=== PATIENT | male | born 1960 | race Asian ===

== ENCOUNTER 2020-03-07 11:01 | Outpatient (REF) | payer BC, SELFPAY | END 2020-03-07 11:02 | disposition home or self-care (01) | LOC: HO.LAB 11:01 | PROVIDERS: Visit Provider Nurse Practitioner Family | DX: Z20.828 Contact with and (suspected) exposure to other viral communicable diseases (principal) | CPT/HCPCS: U0003 ==

== ENCOUNTER 2020-09-25 15:39 | Emergency (ER) | payer BC, SELFPAY ==
--- NOTE | ~2020-09-25 | XR_ITS ---
EXAMINATION: LEFT WRIST CLINICAL INFORMATION: Pain COMPARISON: Frontal view of the hand #20 2012 TECHNIQUE: 4 views of the left wrist FINDINGS: There is an intra-articular impacted displaced distal radial fracture. The ulnar 20% of the articular surface of the radius is depressed by approximately 3 mm. There is a sagittal component to the intra-articular fracture. In addition there is a transversely oriented fracture which extends from the radial aspect of the proximal metaphysis across the distal radius and there is an additional sagittal fracture extending into the diametaphysis. Tiny smooth ossific density associated with the ulnar styloid is age indeterminate. There is soft tissue swelling. No definite navicular fracture. XR/XR wrist LT w scaphoid IMPRESSION: Depressed intra-articular distal radial fracture. Multiplanar components as described. Equivocal ossification near the tip of the ulnar styloid is age indeterminate.
[2020-09-25 16:25] VITALS: BP 143/85; PULSE 71; RESP 16; TEMP 36.6; O2SAT 99; BMI 29.9
--- NOTE | 2020-09-25 18:54 | ED.EXTPRO ---
HPI - Extremity Problem General Chief complaint: Extremity Injury, Upper Stated complaint: abnormal xray Time Seen by Provider: 09/25/20 18:00 Source: patient Mode of arrival: ambulatory Limitations: no limitations History of Present Illness HPI Narrative: Patient presents to ED for left wrist injury. Patient states he fell on Thursday on the wrist and was sent by PCP for x-ray today which showed a fracture. Patient states presently in the ER he has no pain. Patient denies falling to the ground, hitting head, neck pain, or loss of consciousness. Related Data Previous Rx's Medication Instructions Recorded naproxen 500 mg PO BID PRN #20 tab 09/25/20 Allergies Allergy/AdvReac Type Severity Reaction Status Date / Time No Known Allergies Allergy Verified 09/25/20 14:18 Review of Systems Review of Systems: Yes all other systems are reviewed and are negative Constitutional: Constitutional: Reports as per HPI and Reports no additional constitutional complaints Eyes: Eyes: Reports as per HPI ENT: Reports system reviewed and no additional complaints, except as documented and Reports as per HPI Cardiovascular: Cardiovascular: Reports as per HPI and Reports no additional cardiovascular complaints Respiratory: Respiratory: Reports as per HPI and Reports no additional respiratory complaints Gastrointestinal: Gastrointestinal: Reports as per HPI and Reports no additional gastrointestinal complaints Genitourinary: Genitourinary: Reports no additional male genitourinary complaints and Reports as per HPI Musculoskeletal: Musculoskeletal: Reports no additional musculoskeletal complaints, Reports as per HPI and Reports arthralgias Comments: Left wrist pain Neurologic: Reports system reviewed and no additional complaints, except as documented and Reports as per HPI Psychiatric: Psychiatric: Reports no additional psychiatric complaints and Reports as per HPI [facility] Family History Family History (Updated 09/25/20 @ 14:21 by PEDRO Coronel) Mother No problems noted. Father No problems noted. Social History Social History (Updated 09/25/20 @ 14:22 by PEDRO Coronel) Alcohol intake: current Alcohol intake frequency: 0-2 drinks per day Smoking Status: Never smoker Physical Exam Vital Signs: Vital Signs: Last Vital Signs Temp 97.8 F 09/25/20 16:25 Pulse 71 09/25/20 16:25 Resp 16 09/25/20 16:25 BP 143/85 H 09/25/20 16:25 Pulse Ox 99 09/25/20 16:25 Body Mass Index 29.9 Const: General: cooperative, healthy appearing, comfortable, no acute distress, well developed, alert and awake Orientation/consciousness: patient oriented x3 HENMT: Head: Yes normal to inspection, Yes No palpable skull fracture present, Yes normocephalic, Yes atraumatic and No abrasion Eyes: General: appearance normal, both eyes and all related structures Neck: Neck: Yes normal visual inspection, Yes full ROM, Yes no lymphadenopathy, Yes no meningeal signs, Yes trachea midline, Yes supple and No tender Chest: Chest palpation & inspection: normal inspection of the chest and normal palpation of entire chest wall Resp: Effort & Inspection: normal respiratory effort and able to speak in complete sentences Auscultation: clear to auscultation bilaterally Cardio: Jugular venous distension: no JVD Heart sounds: S1 normal heart sound present and S2 normal heart sound present GI: Inspection: Yes normal to inspection and No abdominal wall ecchymosis Palpation (GI): Soft to palpation, not firm, nontender, no guarding and not rigid : General: No CVA tenderness and Yes no CVA tenderness Back/Spine/Pelvis: Back: no CVA tenderness, No CVA tenderness and No back tenderness Skin: General skin exam: no rashes or lesions noted and elasticity normal Neuro: General: patient oriented x3, no meningeal signs and CN's II-XI intact bilaterally Cranial nerves: Yes CN's II-XII intact bilaterally Extrem: Other: Left upper extremity: Slight deformity at radius of left wrist. Vascular/neuro exam is intact. Motor exam limited due to slight pain. Slight swelling at radial aspect of wrist. Psych: Appearance: grossly normal, well kempt and not disheveled Course Course Course Narrative: Patient will have x-ray Reevaluation(s) Reevaluation #1: X-ray shows wrist fracture. X-ray shows impacted intra-articular radial fracture. Spoke with orthopedic MORENO Girard who states since fracture occurred 5 days ago no need for reduction & just splint and follow-up with ortho clinic MDM - Extremity (Nontraumatic) MDM Narrative Medical decision making narrative: Wrist fracture Discharge Plan Discharge Clinical Impression: Fracture of wrist Patient Disposition: Home, Self-Care Instructions: Wrist Fracture in Adults (ED) Additional Instructions: Return to the ED for worsening pain, swelling, bluish blast coloration of hand/finger tips, redness, chest pain, shortness of breath, or any other concerning symptoms. Prescriptions: New naproxen 500 mg tablet 500 mg PO BID PRN (Reason: pain) Qty: 20 RF: 0 Referrals: Jeffery Carty MD [Physician] - 2 days (Left impacted radial wrist fracture) Stand Alone Forms: Work/School Release Interventions: ED Discharge Assessment Last Done: 09/25/20 19:28 Discharge Date/Time: 09/25/20 19:30 Print Language: Bulgarian
--- NOTE | 2020-09-25 19:21 | PC.NURSE ---
SUGAR TONG SPLINT APPLIED TO L HAND.
== END 2020-09-25 19:30 | disposition home or self-care (01) ==
LOC: HO.ED 15:39
PROVIDERS: Emergency Provider Internal Medicine; PCP Internal Medicine; Visit Provider Internal Medicine
DX: S52.572A Other intraarticular fracture of lower end of left radius, initial encounter for closed fracture (principal); W11.XXXA Fall on and from ladder, initial encounter; Y93.9 Activity, unspecified; Y92.017 Garden or yard in single-family (private) house as the place of occurrence of the external cause; Y99.9 Unspecified external cause status
CPT/HCPCS: 29125; 73110; 99283

== ENCOUNTER → 2020-09-28 08:49 | Outpatient (BNVA) | payer BC, SELFPAY | PROVIDERS: PCP Internal Medicine; Visit Provider Physician Assistant ==

== ENCOUNTER 2020-10-04 08:45 | Day surgery (SDC) | payer BC, SELFPAY ==
--- NOTE | 2020-10-03 09:54 | P.CONAN_ITS ---
Documented by User: Kymberly Davey 10/03/20 09:55 HPI - Anesthesia Eval Consult details Narrative: 60yo M for Left Radius Distal ORIF [facility] Active Problems Active Problems: All Active Problems (Updated 09/28/20 @ 09:40 by Rogerio Le PA-C) Distal radius fracture, left (Acute) Left wrist pain (Acute) Nonproductive cough (Acute) Past Medical History Medical History No significant past medical history Normal colonoscopy Family History Family History Mother No problems noted. Father No problems noted. 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 occupation: [employer]/rt handed Meds Allergies Allergy/AdvReac Type Severity Reaction Status Date / Time No Known Allergies Allergy Verified 09/28/20 09:07 Exam Exam Date and Time: October 03, 2020 0954 Assessment and Plan Assessment Anesthesia Assessment: Chart Reviewed Documented by User: Mary Weeks 10/04/20 11:09 PMFSH Past Medical History Medical History No significant past medical history Normal colonoscopy Family History Family History Mother No problems noted. Father No problems noted. 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 occupation: [employer]/Food [employer] Meds Allergies Allergy/AdvReac Type Severity Reaction Status Date / Time No Known Allergies Allergy Verified 09/28/20 09:07 Exam Airway Mallampati Class: II TM Dist: >3cm Neck ROM: Full Assessment and Plan Assessment Anesthesia Assessment: Anesthesia Plan Discussed and Chart Reviewed Final Anesthetic Review NPO: Yes ASA Class: I Final Preanesthetic Review: No Changes in Pt Med Stat, Meds/Allgs Chart Re viewed, Consent Obtained/Reviewed and Anes Risks/Benef Reviewed Patient Risk: Low Procedure Risk: Low Assessment/Block/Sedation in SS: Assess/Block/Sedation-SS Anesthetic Plan Anesthetic Plan: GA and Regional Block Disposition: Standard PACU
[2020-10-04] VITALS (8 sets, daily range): BP systolic 98–132; BP diastolic 56–82; PULSE 58–74; RESP 16; TEMP 36.1–36.6; O2SAT 94–100; BMI 26.0
--- NOTE | ~2020-10-04 | FL_ITS ---
EXAMINATION: XR FLUOROSCOPY WITH IMAGES CLINICAL INFORMATION: Left distal radius fracture. COMPARISON: Previous x-ray 09/25/2020 TECHNIQUE: Fluoroscopy performed by Dr. Shearer. Fluoroscopy time: 38 seconds DAP: [id number] [id number] Images: 4 FINDINGS: Fluoroscopy guidance was provided for plate and screw fixation of the left distal radius fracture. There is improved anatomic alignment. FL/FL guidance in OR IMPRESSION: ORIF of left distal radius fracture.
--- NOTE | 2020-10-04 09:41 | PC.NURSE ---
MD VENTURA AWARE OF WOUND NOTED TO LEFT WRIST.
[2020-10-04] MEDS: Lactated Ringers 1,000 ML 100 ML IVCONT (13:01)
--- NOTE | 2020-10-04 13:14 | P.OP_ITS ---
Operative Note Operative Note Date of Service: 10/04/20 Narrative: Operative Note Narrative: Preop diagnosis: 1. Left intra-articular Distal radius fracture Postop diagnosis: Same Procedure: 1. Left Distal radius fracture open reduction internal fixation Surgeon: Falguni Shearer MD Anesthesia: Mac plus regional block Findings: Taking her distal radius fracture Implants: A 3 hole Accu Med volar locking plate, with three 2.3 mm locking pegs/screws, and 3 3.5 mm cortical screws Tourniquet time: 45 minutes EBL: 5.0 ml Specimen: None Drains: None Complications: None Disposition: Brought to the recovery room in stable condition Plan: Follow-up in 10-14 days for wound check, suture removal and postop radiographs The patient will be placed in a volar wrist splint. Encouraged no lifting of anything heavier than a cell phone. Please encourage active and passive range of motion of the digits. Follow-up at 4-5 weeks postop for repeat radiographs. Indications: The patient is a 60 year old man with a comminuted intra- articular left distal radius fracture . The risks and benefits of operative treatment, including but not limited to risk of damage to blood vessels, nerves, tendons, infection, recurrence, persistent pain or numbness, incomplete resolution of preoperative symptoms, or need for further surgery were discussed with the patient and they wished to proceed with surgery. Procedure: Once consent was obtained patient was brought back to the operating suite and placed in the operating table in a supine position. A regional block was performed by the anesthesia team. Perioperative antibiotics and anesthesia was administered by the anesthesia team. A tourniquet was applied to the proximal aspect of the left upper extremity and the limb was prepped and draped in a standard surgical fashion. The limb was elevated exsanguinated with Esmarch bandage and the tourniquet inflated to 250 mm of mercury for a total tourniquet time of 45 minutes. The FluoroScan was used throughout the case to assess our reduction, and facil itate implant placement. A gentle closed reduction was 1st performed on the patient's left distal radius fracture. Was assessed radiographically before proceeding with the reduction internal fixation. I then made an 8 cm longitudinal incision over the distal aspect of the flexor carpi radialis tendon. The incision was made through the skin to the subcutaneous tissue using a 15. Blade. Then carefully dissected down to flexor carpi radialis tendon she tenotomy scissors. The FCR tendon sheath was then incised longitudinally using tenotomy scissors under direct visualization. The FCR tendon was then retracted ulnarly. I then made a longitudinal incision in the volar forearm fascia through the floor of FCR tendon sheath using tenotomy scissors under direct visualization. I identified the interval between the radial artery and the flexor tendons. This interval was developed further with my index finger, releasing some of the muscular fibers of the flexor pollicis longus. A dull we turnerander retractor was then placed. I then created an ulnarly based flap of the pronator quadratus by releasing the radial and distal edges using a 15. Blade. A Dean elevator was used to elevate the pronator quadratus from the volar surface of the distal radius. This then revealed to us our distal radius fracture. There was an oblique fracture line passing through the metaphysis to the articular surface at the junction between the lunate and scaphoid facets. An oblique view showed us the fracture fragment involving the DRUJ and the lunate facet extending dorsally. An open reduction was then performed on our distal radius fracture. I then placed a short narrow 3 hole Accu Med volar locking plate on the ulnar aspect of the volar surface of the distal radius so as to secure the lunate facet fragment.. I placed a single K-wire through the distal aspect of the plate and into the distal radius. This was assessed using fluoroscopic images. I was satisfied with the placement of our plate. I then placed three 2.3 mm locking screws/pegs in the distal aspect of the plate and distal radius by 1st drilling bicortically with a 2.0 mm drill bit, measuring with a depth gauge, and placing the appropriate length locking screws/pegs. The placement of our plate and screws was then assessed again using fluoroscopic images. The once satisfied with the placement of the volar locking plate and screws on the distal aspect of the distal radius, the plate was then reduced to the shaft of the radius. I then placed 3 3.5 mm cortical screws to the proximal aspect of the plate and into the shaft of the radius. This was done by 1st drilling bicortically with a 2.5 mm drill bit, measuring with a depth gauge, and placing the appropriate length screw. Final radiographs were then obtained. The DRUJ was assessed and found to be stable on exam. I was satisfied with our reduction and placement of all implants. At this point the wound was irrigated with normal saline. The pronator quadratus was reduced back over the volar locking plate using some 3-0 Vicryl suture material. The tourniquet was then deflated and hemostasis was obtained with a brief period of local pressure and bipolar monopolar electrocautery. The subcutaneous layer was then reapproximated using some 4-0 Vicryl suture, and the skin edges were reapproximated using some 5 0 Prolene suture. The wound was then infiltrated with some 1% lidocaine with epinephrine postop pain control. A sterile dressing and a short dorsal splint allowing for active flexion and extension of the digits was applied. The patient appears to have tolerated the procedure well and with no complications. All digits were well vascularized conclusion of the case.
--- NOTE | 2020-10-04 13:14 | MHC.SHP ---
Pre-Procedural Eval Section B Chief Complaint: Lower end radius Fracture Allergies: Allergies Allergy/AdvReac Type Severity Reaction Status Date / Time No Known Allergies Allergy Verified 09/28/20 09:07 Plan I have reviewed the history and physical and performed a pertinent physical examination on my patient. No changes have occurred unless specified.
== END 2020-10-04 16:07 ==
LOC: HO.SSS 08:46
PROVIDERS: PCP Internal Medicine; Visit Provider Orthopaedic Surgery
PROC: (CPT 25608; principal; 2020-10-04 10:30)
DX: S52.572A Other intraarticular fracture of lower end of left radius, initial encounter for closed fracture (principal); X58.XXXA Exposure to other specified factors, initial encounter; Y93.9 Activity, unspecified; Y92.9 Unspecified place or not applicable; Y99.8 Other external cause status
CPT/HCPCS: 25608; C1713; C1769; J0690; J1100; J2250; J2405; J3010

== ENCOUNTER 2020-10-17 08:22 | Outpatient (REF) | payer BC, SELFPAY ==
--- NOTE | ~2020-10-17 | XR_ITS ---
EXAMINATION: XR WRIST, LEFT CLINICAL INFORMATION: Pain COMPARISON: Left wrist 09/25/2020 TECHNIQUE: PA, lateral, and oblique views of the left wrist. FINDINGS: The intra-articular distal radial fracture has been stabilized with volar plate and screws. The fracture fragments are in alignment. The radioulnar carpal alignment is maintained normal. The soft tissues are normal. There is a dorsal wrist hard cast in place. XR/XR wrist LT min 3V IMPRESSION: Stabilized intraarticular distal radial fracture with volar plate and screws. There is a dorsal hard cast in place
== END 2020-10-17 08:23 | disposition home or self-care (01) ==
LOC: HO.HOSX 08:22
PROVIDERS: Visit Provider Orthopaedic Surgery
DX: S52.502A Unspecified fracture of the lower end of left radius, initial encounter for closed fracture (principal); M25.532 Pain in left wrist
CPT/HCPCS: 73110

== ENCOUNTER 2020-11-14 08:20 | Outpatient (REF) | payer BC, SELFPAY ==
--- NOTE | ~2020-11-14 | XR_ITS ---
EXAMINATION: XR WRIST, LEFT CLINICAL INFORMATION: Left wrist pain. COMPARISON: Most recent left wrist radiographs dated 10/17/2020. TECHNIQUE: PA, lateral, and oblique views of the left wrist. FINDINGS: Redemonstration of a distal radial ORIF across a minimally displaced distal radial fracture in unchanged anatomic alignment. Redemonstration of an ulnar styloid fracture in unchanged alignment. No hardware fracture. No perihardware lucency to suggest loosening or infection. No osseous erosion. XR/XR wrist LT min 3V IMPRESSION: Distal radial ORIF without evidence of complication. Distal radial and ulnar styloid fractures in unchanged anatomic alignment.
== END 2020-11-14 08:21 | disposition home or self-care (01) ==
LOC: HO.HOSX 08:20
PROVIDERS: Visit Provider Orthopaedic Surgery
DX: S52.502D Unspecified fracture of the lower end of left radius, subsequent encounter for closed fracture with routine healing (principal)
CPT/HCPCS: 73110

== ENCOUNTER 2021-01-08 07:30 | Outpatient (RCR) | payer BC, SELFPAY ==
--- NOTE | 2020-12-11 08:27 | MHC.OT.OEV ---
[address] [phone] F: [phone] Occupational Therapy Evaluation Diagnosis: Post-Op repair left intraarticular comminuted radius fx Date of Onset: 09/20/20 Date of Surgery: 10/04/20 Attending Provider: Dr Shearer Prescribed Treatment: Eval and Treat MD Follow Up Appointment: History of Current Condition: 60 yo male was working on a roof and fell off an 8' ladder, landing on his left wrist. He went to the ED five days later with persistent pain. x-ray showed comminuted intraarticular left radius fracture. He was referred to ortho and scheduled for ORIF 10/04/20. He is now about 10 weeks post-op repair, back to work and wearing prefab orthosis for work and sleep. 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 Enjoys playing [employer] Living Situation, Family and/or Social Support: Lives alone, 3 year old daughter visits Current Level of Function and Occupation Self Care, Employment, Leisure: Back to work the past three weeks, not lifting heavy items Sleep: Pain w/ sleeping, wearing orthosis Driving: Some pain w/ moving steering wheel Pain Assessment Pain Score: 3 Pain Scale Used: Numeric (0 - 10) Pain Location and Description: Pain free at rest 3/10 ache/sharp pain in left wrist Aggravating Factors: moving wrist, lifting objects, steering wheel Alleviating Factors: None used Skin and Soft Tissue Assessment Skin and Soft Tissue: Comments: Well healing surgical scar at distal radius Sensory Assessment Comments: Denies sensory changes Edema Assessment Upper Extremity: Left Impaired Lower Extremity: Comments: Mild visable edema left hand and wrist Dexterity Assessment Dexterity: WFL Comments: AROM(PROM) Strength Cervical Cervical Flexion: Cervical Extension: Cervical Lateral Flexion: Cervical Rotation: Comments: WFL Shoulder Flexion: Extension: Abduction: Internal Rotation: External Rotation: Comments: WFL Flexion: Extension: Abduction: Internal Rotation: External Rotation: Comments: Elbow Flexion: Extension: Pronation: Supination: Comments: WFL Flexion: Extension: Pronation: Supination: Comments: Wrist Flexion: R 58 L 44 Extension: R 60 L 46 Ulnar Deviation: R 50 L 35 Radial Deviation: R 20 L 10 Comments: Flexion: Extension: Ulnar Deviation: Radial Deviation: Comments: B/L WFL Thumb Thumb CMC Flexion: Thumb MCP Flexion: Thumb IP Flexion: Radial Abduction: Palmar Abduction: [place] ([place] 0-10): B/L 10 Comments: Digits Index MCP: PIP: DIP: Long MCP: PIP: DIP: Ring MCP: PIP: DIP: Small MCP: PIP: DIP: Comments: B/L WFL, mild left intrinsic tightness Gross Grasp: R 65lb L 38lb Lateral Pinch: R 11 L 10 Two-Point Pinch: R 6 L 6 Three-Jaw John: R 11 L 10 Comments: Patient Education Primary Language: Spanish 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 Patient demonstrates Patient verbalizes Barriers to Learning: None Readiness for Learning: Accepting Who was educated? Patient Comments: Plan of Care Assessment: 60 yo right hand dominant male presents almost 10 weeks post-op ORIF of left distal radius after fall off a ladder. He has been back to work for three weeks and primarily uses dominant right hand for heavy use, wearing prefab orthosis to left wrist. On assessment, he is pain free, notes pain only with some movements and lifting, but able to complete most daily activities, still avoiding heavy lifting. He has decreased range and strength w/ mild edema noted, surgical incision is well healed. He will benefit from cont'd therapy services for optimal functional gains. 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: Wrist ext 60 degrees Wrist flex 60 degrees Wrist pro 75 degrees Wrist sup 75 degrees Gross grasp 55lb Quickdash score <30pts Wean from orthosis w/ work tasks <2/10 pain w/ moderate lifting tasks Frequency and Duration: The patient will be seen 2x/wk for 4 weeks Treatment Plan: Therapeutic Exercise Therapeutic Activity Home Exercise Program Patient Education Edema Control ADL Training Ultrasound Paraffin Fluidotherapy MHP Cold Packs Joint Mobilization Soft Tissue Mobilization Kinesiotaping Electronically Signed By: Nikki Lea OTR/L Reviewed/agree with student documentation: N/A Therapist: Please sign and return to therapist, Thank you for your referral.
--- NOTE | 2021-01-08 07:57 | MHC.OT.DC ---
[address] [phone] F: [phone] Occupational Therapy Discharge Note Provider: Dr Shearer Diagnosis: Post-Op repair left intraarticular comminuted radius fx Date of Surgery: 10/04/20 Date of Evaluation: 12/11/20 Date of Discharge: 01/08/21 Treatments to Date: 4 Cancellations to Date: 1 Discharge Status: Achieved Goals Improved Function Independent with HEP Discharge Summary: Ron is now 13 weeks post-op, doing very well and most goal met at this time, still limited flexion, but shows improvements w/ heat and stretch. Pt feels Ind w/ his home program and has no functional limitation at this time. Electronically Signed By: Nikki Lae OTR/L Please Sign and return to therapist, thank you for your referral.
== END 2021-01-08 07:57 | disposition home or self-care (01) ==
LOC: HO.OT 07:30
PROVIDERS: Visit Provider Orthopaedic Surgery
DX: S52.502D Unspecified fracture of the lower end of left radius, subsequent encounter for closed fracture with routine healing (principal)
CPT/HCPCS: 97110; 97140; 97165

== ENCOUNTER 2021-05-14 10:37 | Outpatient (REF) | payer BC, SELFPAY ==
--- NOTE | ~2021-05-14 | XR_ITS ---
EXAMINATION: XR WRIST, LEFT CLINICAL INFORMATION: Pain in the left wrist COMPARISON: Left wrist radiograph on 11/14/2020 TECHNIQUE: PA, lateral, and oblique views of the left wrist. FINDINGS: Prior fixation of the distal radius. Orthopedic hardware is intact. No periprosthetic loosening or fracture. No change in the ulnar styloid fracture. No new fractures. XR/XR wrist LT min 3V IMPRESSION: Expected appearance of the distal radial fixation.
== END 2021-05-14 10:38 | disposition home or self-care (01) ==
LOC: HO.HOSX 10:37
PROVIDERS: PCP Internal Medicine; Visit Provider Orthopaedic Surgery
DX: S52.502D Unspecified fracture of the lower end of left radius, subsequent encounter for closed fracture with routine healing (principal)
CPT/HCPCS: 73110

== ENCOUNTER 2021-11-27 09:41 | Outpatient (REF) | payer BC, SELFPAY ==
[2021-11-27 09:56] LABS: MANUAL DIFF FLAG NO
[2021-11-27 10:40] LABS: Basophils Absolute Auto 0.1 X10*3/uL (0.0-0.2); Basophils Percent Auto 0.8 % (0-2); Eosinophils Absolute Auto 0.3 X10*3/uL (0.0-0.4); Eosinophils Percent Auto 4.2 % (0-4); Hematocrit 46.7 % (42.0-52.0); Hemoglobin 15.8 g/dl (14.0-18.0); Imm Gran Abs Auto 0.03 X10*3/uL (0.00-0.03); Imm Gran Pct Auto 0.4 % (0.0-0.4); Lymphocytes Absolute Auto 2.2 X10*3/uL (1.2-4.9); Lymphocytes Percent Auto 29.2 % (20-40); Mean Corpuscular HGB Conc 33.8 g/dl (31.0-36.0); Mean Corpuscular Hemoglobin 29.1 pg (27.0-33.0); Mean Platelet Volume 9.9 fL (9.4-12.4); Monocytes Absolute Auto 0.6 X10*3/uL (0.1-1.2); Monocytes Percent Auto 8.1 % (2-11); Neutrophils Absolute Auto 4.3 x10*3/uL (2.0-8.3); Neutrophils Percent Auto 57.3 % (45-73); Platelet Count 226 X10*3/uL (160-400); Red Blood Count 5.43 X10*6/uL (4.60-5.80); Red Cell Distribution Width 12.9 % (11.0-16.0); White Blood Count 7.6 X10*3/uL (4.8-10.8)
[2021-11-27 11:09] LABS: Alanine Aminotransferase 24 U/L (0-40); Albumin Level 4.1 g/dL (3.5-5.0); Alkaline Phosphatase 74 U/L (39-117); Anion Gap 8 (12-20); Aspartate Amino Transferase 22 U/L (5-37); Bilirubin Total 0.9 mg/dL (0.0-1.0); Blood Urea Nitrogen 15 mg/dL (9-16); Calcium 8.7 mg/dL (8.4-10.2); Carbon Dioxide 25 mmol/L (22-29); Chloride 108 mmol/L (96-108); Cholesterol 181 mg/dL; Estimated Glomerular Filt Rate > 60; Glucose Fasting 94 mg/dL (60-99); HDL Cholesterol 29 mg/dL; LDL Cholesterol Calculated 124 mg/dl; Sodium 137 mmol/L (135-145); Total Protein 6.9 g/dL (6.5-8.0); Triglycerides 141 mg/dL
[2021-11-27 11:30] LABS: Prostate Specific Antigen Scr 2.86 ng/mL (<0.05-4.0)
== END 2021-11-27 09:42 | disposition home or self-care (01) ==
LOC: HO.LAB 09:41
PROVIDERS: PCP Internal Medicine; Visit Provider Internal Medicine
DX: Z00.00 Encounter for general adult medical examination without abnormal findings (principal); E78.5 Hyperlipidemia, unspecified; I10 Essential (primary) hypertension; Z13.0 Encounter for screening for diseases of the blood and blood-forming organs and certain disorders involving the immune mechanism; Z12.5 Encounter for screening for malignant neoplasm of prostate
CPT/HCPCS: 36415; 80053; 80061; 84153; 85025

== ENCOUNTER 2021-12-14 10:38 | Outpatient (REF) | payer BC, SELFPAY ==
[2021-12-14 10:55] LABS: Binax Internal Control QC Valid; Binax Now Covid-19 Ag Positive (Negative)
== END 2021-12-14 10:39 | disposition home or self-care (01) ==
LOC: HO.HMGCLDS 10:38
PROVIDERS: Visit Provider Physician Assistant Medical
DX: Z20.822 Contact with and (suspected) exposure to COVID-19 (principal)
CPT/HCPCS: 87811; C9803

== ENCOUNTER 2022-12-15 09:38 | Outpatient (AMB) | payer BC, SELFPAY ==
--- NOTE | 2022-12-15 09:42 | A.OFFPC_ITS ---
Vital Signs 12/15/22 09:44 Height 5 ft 6 in Weight 158 lb 8 oz BMI 25.6 BP 120/78 Blood Pressure Location Lt brachial Position Sitting Pulse 62 Pulse Source Pulse Oximeter Pulse Oximetry (%) 96 Oxygen Delivery Method Room Air Intake Visit Reasons: Discuss medical issues Intake Note: Patient is here to follow up on medical issues. 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: No School Counsellor: Not Required per policy Accompanied by: Self / Same As Patient Allergies No Known Allergies Allergy (Verified 12/15/22 09:44) Tobacco use date assessed: 12/15/22 Dental Screening Dental Screen Date: 12/15/22 Did you have a dental visit in the last 12 months?: No Did you have a dental problem in the last 6 months where you did not have access to dental care?: No Was dental information given to patient?: No HPI Discuss medical issues HPI Details had a vasectomy and interested in a revision; aware it may not be feasable [facility] Medical History No significant past medical history Normal colonoscopy Surgical History (Updated 12/15/22 @ 10:01 by Douglas Lucia MD) History of hand surgery History of vasectomy Family History (Updated 12/15/22 @ 09:43 by PEDRO Garcia) Mother No problems noted. Father No problems noted. 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 1. Little interest or pleasure in doing things: not at all 2. Feeling down, depressed, or hopeless: not at all 3. Trouble falling or staying asleep, or sleeping too much: not at all 4. Feeling tired or having little energy: not at all 5. Poor appetite or overeating: not at all 6. Feeling bad about yourself - or that you are a failure or have let yourself or your family down: not at all 7. Trouble concentrating on things, such as reading the newspaper or watching television: not at all 8. Moving or speaking so slowly that other people could have noticed. Or the opposite - being so fidgety or restless that you have been moving around a lot more than usual: not at all 9. Thoughts that you would be better off or of hurting yourself in some way: not at all Total score: 0 Depression Screening Interpretation: Negative Source: Developed by Drs. Bean Vilchis, Deanna Webb, Jesus Murillo and colleagues, with an educational jared from [employer]. Thrive Questionnaire Date Thrive assessed: 12/15/22 I am a: Patient What is your living situation today?: I have a steady place to live Within the past 12 months, did the food you bought not last and you didn't have the money to get more?: Never true Within the past 12 months, did you worry whether your food would run out before you got money to buy more?: Never true Do you have trouble paying for medicines?: No Do you have trouble getting transportation to medical appointments?: No Do you have trouble paying your heating and electricity bill?: No Do you have trouble taking care of your child, family member or friend?: No Do you have trouble with day-to-day activities such as bathing, preparing meals, shopping, managing finances, etc.?: No Are you currently unemployed and looking for a job?: No Are you interested in more education?: No Currently or been in a relationship where the following occur: no concerns reported AUDIT C Alcohol Use Questionnaire (AUDIT-C) 1. How often do you have a drink containing alcohol?: Never 2. How many drinks containing alcohol do you have on a typical day when you are drinking?: 1 or 2 Total Score: 0 MITRA-7 AMB Questionnaire MITRA-7 Date MITRA - 7 assessed: 12/15/22 Feeling nervous, anxious, or on edge: 0 = Not at all Not being able to stop or control worryin = Not at all Worrying too much about different things: 0 = Not at all Trouble relaxin = Not at all Being so restless that it is hard to sit still: 0 = Not at all Becoming easily annoyed or irritable: 0 = Not at all Feeling afraid as if something awful might happen: 0 = Not at all Total MITRA-7 score (0-4 normal; 5-9 mild; 10-14 moderate; 15-21 severe): 0 Source: Developed by Drs. Bean Vilchis, Deanna Webb, Jesus Murillo and colleagues, with an educational jared from [employer]. Review of Systems Const Denies chills, Denies headache(s) and Denies weight loss ENT Denies headache(s) Card Denies chest pain, Denies syncope, Denies irregular heart rhythm and Denies dyspnea Resp Denies chest congestion, Denies cough and Denies dyspnea GI Denies abdominal pain, Denies change in stool character, Denies nausea and Denies vomiting Musc Denies deformity and Denies joint swelling Neuro Denies syncope and Denies headache(s) Physical exam (Primary Care) Vital Signs: Last Vital Signs Pulse 62 12/15/22 09:44 BP 120/78 12/15/22 09:44 Pulse Ox 96 12/15/22 09:44 Oxygen Delivery Method Room Air 12/15/22 09:44 BMI result Body Mass Index 25.6 Tobacco/Smoking Status: Tobacco use Status Tobacco use date assessed 12/15/22 12/15/22 09:49 Patient Tobacco Use Status Never used Tobacco 12/15/22 09:49 e-Cigarette/Vaping Use Never Used 12/15/22 09:49 PHQ-9: PHQ-9 Score PHQ-9: Total score 0 12/15/22 09:49 Depression Screening Interpretation: Negative Thrive Assessment: Date of Thrive Assessment Date Thrive assessed 12/15/22 12/15/22 09:49 Currently or been in a relationship where the following occur: no concerns reported Const General: cooperative, healthy appearing and no acute distress HENMT Head: Yes normal to inspection Eyes General: appearance normal, both eyes and all related structures Neck Neck: Yes normal visual inspection Skin Other: 2 inch healing lac left forearm Assessment and Plan Assessment & Plan (1) Status post vasectomy: Code(s): Z98.52 - Vasectomy status Plan: ref urology Orders: Orders Comprehensive [place]. Panel Fast Today N28.9 - Disorder of kidney and ureter, unspecified Lipid Panel Today E78.5 - Hyperlipidemia, unspecified Thyroid Stimulating Hormone Today E03.9 - Hypothyroidism, unspecified Complete Blood Count Auto Diff Today D64.9 - Anemia, unspecified Referrals Urology Referral Z98.52 - Vasectomy status Coding Level of Care Code Est Pt Level 3 (75933) Diagnoses Status post vasectomy Z98.52
[2022-12-15 09:44] VITALS: BP 120/78; PULSE 62; O2SAT 96; BMI 25.6
== END 2022-12-15 09:56 | disposition home or self-care (01) ==
PROVIDERS: PCP Internal Medicine; Visit Provider Internal Medicine
DX: Z98.52 Vasectomy status (principal)
CPT/HCPCS: 99213

== ENCOUNTER 2022-12-15 10:10 | Outpatient (REF) | payer BC, SELFPAY ==
[2022-12-15 10:26] LABS: MANUAL DIFF FLAG NO
[2022-12-15 10:40] LABS: Basophils Absolute Auto 0.1 X10*3/uL (0.0-0.2); Basophils Percent Auto 1.1 % (0-2); Eosinophils Absolute Auto 0.3 X10*3/uL (0.0-0.4); Eosinophils Percent Auto 3.7 % (0-4); Hematocrit 47.5 % (42.0-52.0); Hemoglobin 16.1 g/dl (14.0-18.0); Imm Gran Abs Auto 0.04 X10*3/uL (0.00-0.03); Imm Gran Pct Auto 0.6 % (0.0-0.4); Lymphocytes Absolute Auto 2.5 X10*3/uL (1.2-4.9); Lymphocytes Percent Auto 35.4 % (20-40); Mean Corpuscular HGB Conc 33.9 g/dl (31.0-36.0); Mean Corpuscular Hemoglobin 29.4 pg (27.0-33.0); Mean Corpuscular Volume 86.8 fL (80.0-98.0); Mean Platelet Volume 10.3 fL (9.4-12.4); Monocytes Absolute Auto 0.7 X10*3/uL (0.1-1.2); Monocytes Percent Auto 9.2 % (2-11); Neutrophils Absolute Auto 3.5 x10*3/uL (2.0-8.3); Platelet Count 183 X10*3/uL (160-400); Red Blood Count 5.47 X10*6/uL (4.60-5.80); Red Cell Distribution Width 12.7 % (11.0-16.0)
[2022-12-15 12:02] LABS: Alanine Aminotransferase 36 U/L (0-40); Alkaline Phosphatase 77 U/L (39-117); Anion Gap 10 (12-20); Aspartate Amino Transferase 26 U/L (5-37); Bilirubin Total 0.7 mg/dL (0.0-1.0); Blood Urea Nitrogen 16 mg/dL (9-16); Calcium 9.1 mg/dL (8.4-10.2); Carbon Dioxide 26 mmol/L (22-29); Chloride 106 mmol/L (96-108); Cholesterol 185 mg/dL; Estimated Glomerular Filt Rate > 60; Glucose Fasting 87 mg/dL (60-99); HDL Cholesterol 34 mg/dL; LDL Cholesterol Calculated 129 mg/dl; Potassium 4.3 mmol/L (3.3-5.1); Sodium 138 mmol/L (135-145); Total Protein 7.2 g/dL (6.5-8.0); Triglycerides 114 mg/dL
[2022-12-15 12:17] LABS: Thyroid Stimulating Hormone 1.74 uIU/mL (0.32-4.0)
== END 2022-12-15 10:11 | disposition home or self-care (01) ==
LOC: HO.LAB 10:10
PROVIDERS: PCP Internal Medicine; Visit Provider Internal Medicine
DX: N28.9 Disorder of kidney and ureter, unspecified (principal); D64.9 Anemia, unspecified; E03.9 Hypothyroidism, unspecified; E78.5 Hyperlipidemia, unspecified
CPT/HCPCS: 36415; 80053; 80061; 84443; 85025

== ENCOUNTER 2023-03-23 08:34 | Outpatient (AMB) | payer BC, SELFPAY ==
--- NOTE | 2023-03-23 08:37 | MHC.PC.OV ---
Vital Signs 03/23/23 08:38 Height 5 ft 6 in Weight 169 lb BMI 27.3 BP 130/86 Blood Pressure Location Lt brachial Position Sitting Pulse 62 Pulse Source Pulse Oximeter Pulse Oximetry (%) 99 Oxygen Delivery Method Room Air Intake Visit Reasons: PE Cnc Lathe Programmer Required: No Straight Knife Machine Cutter: Not Required per policy Accompanied by: Self / Same As Patient Allergies No Known Allergies Allergy (Verified 03/23/23 08:38) Tobacco use date assessed: 12/15/22 Dental Screening Dental Screen Date: 03/23/23 Did you have a dental visit in the last 12 months?: No Did you have a dental problem in the last 6 months where you did not have access to dental care?: No Was dental information given to patient?: Patient has dentist HPI PE HPI Details healthy [facility] Medical History Normal colonoscopy No significant past medical history Surgical History History of hand surgery History of vasectomy Family History Mother No problems noted. Father No problems noted. 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 1. Little interest or pleasure in doing things: not at all 2. Feeling down, depressed, or hopeless: not at all 3. Trouble falling or staying asleep, or sleeping too much: not at all 4. Feeling tired or having little energy: not at all 5. Poor appetite or overeating: not at all 6. Feeling bad about yourself - or that you are a failure or have let yourself or your family down: not at all 7. Trouble concentrating on things, such as reading the newspaper or watching television: not at all 8. Moving or speaking so slowly that other people could have noticed. Or the opposite - being so fidgety or restless that you have been moving around a lot more than usual: not at all 9. Thoughts that you would be better off or of hurting yourself in some way: not at all Total score: 0 Depression Screening Interpretation: Negative Depression Screening Done: Yes Source: Developed by Drs. Bean Vilchis, Deanna Webb, Jesus Murillo and colleagues, with an educational jared from [employer]. Thrive Questionnaire Date Thrive assessed: 12/15/22 AUDIT C Alcohol Use Questionnaire (AUDIT-C) 1. How often do you have a drink containing alcohol?: Never 2. How many drinks containing alcohol do you have on a typical day when you are drinking?: 1 or 2 Total Score: 0 MITRA-7 AMB Questionnaire MITRA-7 Date MITRA - 7 assessed: 12/15/22 Source: Developed by Drs. Bean Vilchis, Deanna Webb, Jesus Murillo and colleagues, with an educational jared from [employer]. Review of Systems Const Denies chills, Denies fatigue, Denies headache(s) and Denies weight loss Eyes Denies change in vision, Denies diplopia and Denies eye pain ENT Denies vertigo, Denies dizziness, Denies headache(s) and Denies nasal discharge Card Denies chest pain, Denies rapid heart rate and Denies dyspnea on exertion Resp Denies chest congestion, Denies cough, Denies pain with cough and Denies dyspnea on exertion GI Denies abdominal pain, Denies hematochezia and Denies change in bowel habits Musc Denies myalgias, Denies arthralgias and Denies joint swelling Skin/Breast Denies lesions and Denies unusual bruising Neuro Denies vertigo, Denies dizziness, Denies headache(s) and Denies focal weakness Endo Denies fatigue Physical exam (Primary Care) Vital Signs: Last Vital Signs Pulse 62 03/23/23 08:38 BP 130/86 03/23/23 08:38 Pulse Ox 99 03/23/23 08:38 Oxygen Delivery Method Room Air 03/23/23 08:38 BMI result Body Mass Index 27.3 Tobacco/Smoking Status: Tobacco use Status Tobacco use date assessed 12/15/22 03/23/23 08:38 Patient Tobacco Use Status Never used Tobacco 03/23/23 08:38 e-Cigarette/Vaping Use Never Used 03/23/23 08:38 PHQ-9: PHQ-9 Score PHQ-9: Total score 0 03/23/23 08:38 Depression Screening Interpretation: Negative Thrive Assessment: Date of Thrive Assessment Date Thrive assessed 12/15/22 03/23/23 08:38 Const General: cooperative, healthy appearing and no acute distress Orientation/consciousness: oriented to person, oriented to place and oriented to time HENMT Head: Yes normal to inspection, Yes normocephalic and Yes atraumatic Mouth: Normal oral and palatal mucosa present and tongue normal Throat: Yes posterior oropharynx normal and Yes uvula midline Eyes General: appearance normal, both eyes and all related structures Neck Neck: Yes normal visual inspection, Yes full ROM and Yes no lymphadenopathy Thyroid: Thyroid normal Carotids: normal carotid upstroke Chest Chest palpation & inspection: normal inspection of the chest Resp Effort & Inspection: normal respiratory effort and able to speak in complete sentences Auscultation: clear to auscultation bilaterally Cardio Jugular venous distension: no JVD Palpation: normal PMI Rate: regular rate Rhythm: regular rhythm Heart sounds: S1 normal heart sound present and S2 normal heart sound present GI Inspection: Yes normal to inspection Palpation (GI): Soft to palpation and No hepatosplenomegaly present Auscultation: normal bowel sounds General: Yes no CVA tenderness Back/Spine/Pelvis Back: no CVA tenderness Skin General skin exam: no rashes or lesions noted Neuro General: oriented to person, oriented to place and oriented to time Extrem General: Yes normal to inspection and Yes full ROM Assessment and Plan Assessment & Plan (1) Physical exam: Code(s): Z00.00 - Encounter for general adult medical examination without abnormal findings Plan: stable; f/u 1 year Coding Level of Care Code Est Pt Prev Care 40-64y(25421) Diagnoses Physical exam Z00.00
[2023-03-23 08:38] VITALS: BP 130/86; PULSE 62; O2SAT 99; BMI 27.3
== END 2023-03-23 08:56 | disposition home or self-care (01) ==
PROVIDERS: PCP Internal Medicine; Visit Provider Internal Medicine
DX: Z00.00 Encounter for general adult medical examination without abnormal findings (principal)
CPT/HCPCS: 99396

== ENCOUNTER 2023-04-03 15:27 | Outpatient (AMB) | payer BC, SELFPAY ==
--- NOTE | 2023-04-03 15:43 | MHC.OFFVIS ---
Intake Intake Visit Reasons: Vasectomy Status Intake Note: New patient is present for vasectomy status. Patient had vasectomy 20 years ago and would like to have procedure reversed. wants another child Allergies No Known Allergies Allergy (Verified 04/03/23 15:45) HPI HPI Comments History of Present Illness Details Ron is a pleasant [place] male. He is a patient of Dr Law. He seen for the following urologic conditions - vasectomy reversal Prior vasectomy 20 years ago New partner She is interested in vasectomy reversal Discussed procedure, possible success, out of pocket expenses He will consider [facility] Medical History Normal colonoscopy No significant past medical history Surgical History History of hand surgery History of vasectomy Family History Mother No problems noted. Father No problems noted. 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 Cognitive needs: No Hearing needs: No Vision needs: Yes (glasses) Review of Systems Const Denies chills and Denies fever(s) Card Reports no additional complaints and Denies syncope Resp Denies cough GI Denies abdominal pain and Denies heartburn Reports as per HPI and Denies change in libido Neuro Denies syncope Psych Denies change in libido Endo Denies change in libido Physical Exam Const General: cooperative, healthy appearing, comfortable and no acute distress Orientation/consciousness: patient oriented x3 HEENT Face and sinus: Yes normal facial exam Mouth: moist mucous membranes Neck Neck: Yes normal visual inspection, Yes full ROM and Yes trachea midline Chest Chest palpation & inspection: normal inspection of the chest Resp Effort & Inspection: normal respiratory effort, able to speak in complete sentences and no respiratory distress GI Inspection: Yes normal to inspection Back/Spine/Pelvis Cervical Spine: normal cervical lordosis Thoracic/Lumbar Spine: thoracic and lumbar spine normal to inspection Skin General skin exam: no rashes or lesions noted Neuro General: patient oriented x3, gait normal, tone normal and moves all extremities Extrem General: Yes normal to inspection and Yes capillary refill normal Assessment & Plan Assessment & Plan (1) Male infertility: Code(s): 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 No major barriers to patient understanding were identified. An opportunity to ask questions regarding the treatment plan was provided. All questions were answered. The patient expressed understanding and agreement with the above treatment plan. The patient is aware they should contact our office by phone for worsening of their current condition or the appearance of new urologic symptoms. Compliance is encouraged with any medications and followup testing that is ordered. It is a privilege to participate in the urologic care of your patient. If you have any questions or concerns regarding treatment for the above conditions, or other urologic issues, please do not hesitate to contact me. The office telephone contact is [phone]. This note is constructed using voice recognition software. While every effort has been made to ensure accuracy acupressure therapist errors may have been included. Yours sincerely, Dr Moody Marcano MD, [facility] - Urology Providers of Expert, Compassionate Care for the Genitourinary System Coding Level of Care Code New Pt Level 3 (45074) Diagnoses Male infertility N46.9
== END 2023-04-03 16:17 | disposition home or self-care (01) ==
PROVIDERS: PCP Internal Medicine; Visit Provider Urology
DX: N46.9 Male infertility, unspecified (principal)
CPT/HCPCS: 99203; 99213

== ENCOUNTER → 2023-04-03 15:27 | Outpatient (BNVA) | payer BC, SELFPAY | PROVIDERS: PCP Internal Medicine; Visit Provider Urology ==

== ENCOUNTER 2023-06-10 10:35 | Outpatient (REF) | payer BC, SELFPAY ==
[2023-06-10 14:25] LABS: Influenza A PCR NEGATIVE (Negative); Influenza B PCR NEGATIVE (Negative); Resp Syncy Virus RNA Qual PCR NEGATIVE (Negative); SARS COV2 PCR INHOUSE POSITIVE (Negative)
== END 2023-06-10 10:36 | disposition home or self-care (01) ==
LOC: HO.HMGCLNP 10:35
PROVIDERS: Visit Provider Physician Assistant
DX: Z11.52 Encounter for screening for COVID-19 (principal); Z20.822 Contact with and (suspected) exposure to COVID-19; R05.9 Cough, unspecified
CPT/HCPCS: 0241U

== ENCOUNTER 2023-06-10 10:35 | Outpatient (AMB) | payer BC, SELFPAY ==
[2023-06-10 10:35] VITALS: BP 150/80; PULSE 92; TEMP 36.9; O2SAT 97; BMI 27.8
--- NOTE | 2023-06-10 10:35 | AM.OFFWIN_ITS ---
Intake Vital Signs 06/10/23 10:35 Height 5 ft 6 in Weight 172 lb BMI 27.8 BP 150/80 H Blood Pressure Location Lt brachial Position Sitting Pulse 92 Pulse Source Pulse Oximeter Temp 98.5 F Temp Source Temporal Artery Scan Pulse Oximetry (%) 97 Oxygen Delivery Method Room Air Intake Visit Reasons: EP chills body aches runny nose [id number] Intake Note: pt is here today for chills body aches runny nose started yesterday Patient Tobacco Use Status: Never used Tobacco Allergies No Known Allergies Allergy (Verified 06/10/23 10:36) Do you need a note to return to daycare/school/sports/work: Yes HPI HPI Comments History of Present Illness Details This is a 63-year-old male with no stated past medical history presenting for evaluation of body aches, fevers, chills and cough that he has had since yesterday. Patient states he has been taking Tylenol only for relief of his symptoms and is not aware of how high his fever was at home. Patient has taken to test for COVID-19 which were both positive. The patient is requesting an official test here in the clinic because his tests at home were reportedly . [facility] Medical History Normal colonoscopy No significant past medical history Surgical History History of hand surgery History of vasectomy Family History Mother No problems noted. Father No problems noted. 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 Cognitive needs: No Hearing needs: No Vision needs: Yes (glasses) Review of Systems Const All systems reviewed & are unremarkable except as noted in HPI and below Reports body aches, Reports chills and Reports fever(s) Eyes Reports no additional complaints ENT Reports no additional complaints Card Reports no additional complaints and Denies dyspnea Resp Reports no additional complaints, Reports cough, Denies hemoptysis and Denies dyspnea Reports no additional complaints Musc Reports no additional complaints Skin/Breast Reports system reviewed and no additional complaints, except as documented Physical Exam Vital Signs: Last Vital Signs Temp 98.5 F 06/10/23 10:35 Pulse 92 06/10/23 10:35 BP 150/80 H 06/10/23 10:35 Pulse Ox 97 06/10/23 10:35 Oxygen Delivery Method Room Air 06/10/23 10:35 BMI result Body Mass Index 27.8 Const General: cooperative, healthy appearing, comfortable and no acute distress Nutritional Appearance: average body habitus Orientation/consciousness: patient oriented x3 Limitations: no limitations HEENT Head: Yes normal to inspection Ears: hearing grossly normal bilaterally, external ears normal, TM's normal bilaterally and EAC's normal General nose exam: Normal external nose present Face and sinus: Yes normal facial exam and Yes sinuses nontender Mouth: Normal oral and palatal mucosa present Throat: Yes posterior oropharynx normal Eyes Eyelids: Yes eyelids normal Conjunctivae: conjunctivae normal Sclerae: sclerae normal Corneas: corneas normal Pupils: Equal, round and reactive pupils present EOM: EOMs intact bilaterally Neck Lymphatic: no lymphadenopathy noted Resp Effort & Inspection: normal respiratory effort, able to speak in complete sentences, normal respiratory pattern, no audible wheezes, Actively coughing and no respiratory distress Auscultation: clear to auscultation bilaterally Cardio Rate: regular rate Rhythm: regular rhythm Skin General skin exam: no rashes or lesions noted Neuro General: patient oriented x3 Cranial nerves: Yes Equal, round and reactive pupils present Psych Appearance: grossly normal Mental Status: mental status grossly normal Insight: Good insight present (Psych) Judgement: Good judgement present (Psych) Assessment & Plan Assessment & Plan (1) Cough: Comment: Patient reports having 2 tests that were positive for COVID-19 at home; SARS panel ordered and pending. Code(s): R05.9 - Cough, unspecified Qualifiers: Cough type: acute Qualified Code(s): R05.1 - Acute cough Plan: Tylenol or ibuprofen as needed for fever and body aches, increase clear fluids daily and work note is provided for the remainder of his work week. Orders: Orders SARS-CoV2/FLU/RSV Today R05.9 - Cough, unspecified Coding Level of Care Code Est Pt Level 3 (16896) Diagnoses Acute cough R05.1 Cough type: acute Time Spent (min) 20
== END 2023-06-10 11:13 | disposition home or self-care (01) ==
PROVIDERS: PCP Internal Medicine; Visit Provider Physician Assistant
DX: R05.1 Acute cough (principal)
CPT/HCPCS: 99213

== ENCOUNTER 2024-04-25 13:48 | Outpatient (AMB) | payer BC, SELFPAY ==
[2024-04-25 13:50] VITALS: BP 130/88; PULSE 69; O2SAT 98; BMI 28.0
--- NOTE | 2024-04-25 13:50 | A.OFFPC_ITS ---
Vital Signs 04/25/24 13:50 Height 5 ft 6 in Weight 173 lb 4 oz BMI 28.0 BP 130/88 Blood Pressure Location Lt brachial Position Sitting Pulse 69 Pulse Source Pulse Oximeter Pulse Oximetry (%) 98 Oxygen Delivery Method Room Air Intake Visit Reasons: annual exam Economic Consultant Required: No Accompanied by: Self / Same As Patient Allergies No Known Allergies Allergy (Verified 04/25/24 13:52) Medication List - Last Reconciled 04/26/24 by Douglas Lucia MD No Known Home Meds Tobacco use date assessed: 04/25/24 Dental Screening Dental Screen Date: 04/25/24 Did you have a dental visit in the last 12 months?: No Did you have a dental problem in the last 6 months where you did not have access to dental care?: No Was dental information given to patient?: Patient declined HPI annual exam HPI Details healthy [facility] Medical History Normal colonoscopy No significant past medical history Surgical History History of hand surgery History of vasectomy Family History Mother No problems noted. Father No problems noted. 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 1. Little interest or pleasure in doing things: not at all 2. Feeling down, depressed, or hopeless: not at all 3. Trouble falling or staying asleep, or sleeping too much: not at all 4. Feeling tired or having little energy: not at all 5. Poor appetite or overeating: not at all 6. Feeling bad about yourself - or that you are a failure or have let yourself or your family down: not at all 7. Trouble concentrating on things, such as reading the newspaper or watching television: not at all 8. Moving or speaking so slowly that other people could have noticed. Or the opposite - being so fidgety or restless that you have been moving around a lot more than usual: not at all 9. Thoughts that you would be better off or of hurting yourself in some way: not at all Total score: 0 Depression Screening Interpretation: Negative Depression Screening Done: Yes 12362 - PHQ-9 Billing: Yes Source: Developed by Drs. Bean Vilchis, Deanna Webb, Jesus Murillo and colleagues, with an educational jared from [employer]. Thrive Questionnaire Date Thrive assessed: 04/25/24 I am a: Patient What is your living situation today?: I have a steady place to live Within the past 12 months, did the food you bought not last and you didn't have the money to get more?: Never true Within the past 12 months, did you worry whether your food would run out before you got money to buy more?: Never true Do you have trouble paying for medicines?: No Do you have trouble getting transportation to medical appointments?: No Do you have trouble paying your heating and electricity bill?: No Do you have trouble taking care of your child, family member or friend?: No Do you have trouble with day-to-day activities such as bathing, preparing meals, shopping, managing finances, etc.?: No Are you currently unemployed and looking for a job?: No Are you interested in more education?: No Please select the resources that you would like help with: None Currently or been in a relationship where the following occur: No concerns reported THRIVE Score: 0 AUDIT C Alcohol Use Questionnaire (AUDIT-C) 1. How often do you have a drink containing alcohol?: Monthly or less 2. How many drinks containing alcohol do you have on a typical day when you are drinking?: 1 or 2 3. How often do you have six or more drinks on one occasion?: Never Total Score: 1 MITRA-7 AMB Questionnaire MITRA-7 Date MITRA - 7 assessed: 04/25/24 Feeling nervous, anxious, or on edge: 0 = Not at all Not being able to stop or control worryin = Not at all Worrying too much about different things: 1 = Several days Trouble relaxin = Not at all Being so restless that it is hard to sit still: 0 = Not at all Becoming easily annoyed or irritable: 0 = Not at all Feeling afraid as if something awful might happen: 0 = Not at all Total MITRA-7 score (0-4 normal; 5-9 mild; 10-14 moderate; 15-21 severe): 1 Source: Developed by Drs. Bean Vilchis, Deanna Webb, Jesus Murillo and colleagues, with an educational jared from [employer]. MITRA-7 Assessment Billing MITRA-7 Assessment Tool: MITRA-7 Assessment 80921 Review of Systems Const Denies chills, Denies fatigue, Denies headache(s) and Denies weight loss Eyes Denies change in vision, Denies diplopia and Denies eye pain ENT Denies vertigo, Denies dizziness, Denies headache(s) and Denies nasal discharge Card Denies chest pain, Denies rapid heart rate and Denies dyspnea on exertion Resp Denies chest congestion, Denies cough, Denies pain with cough and Denies dyspnea on exertion GI Denies abdominal pain, Denies hematochezia and Denies change in bowel habits Musc Denies myalgias, Denies arthralgias and Denies joint swelling Skin/Breast Denies lesions and Denies unusual bruising Neuro Denies vertigo, Denies dizziness, Denies headache(s) and Denies focal weakness Endo Denies fatigue Physical exam (Primary Care) Vital Signs: Last Vital Signs Pulse 69 04/25/24 13:50 BP 130/88 04/25/24 13:50 Pulse Ox 98 04/25/24 13:50 Oxygen Delivery Method Room Air 04/25/24 13:50 BMI result Body Mass Index 28.0 Tobacco/Smoking Status: Tobacco use Status Tobacco use date assessed 04/25/24 04/25/24 13:54 Patient Tobacco Use Status Never used Tobacco 04/25/24 13:54 e-Cigarette/Vaping Use Never Used 04/25/24 13:54 PHQ-9: PHQ-9 Score PHQ-9: Total score 0 04/25/24 13:54 Depression Screening Interpretation: Negative Thrive Assessment: Date of Thrive Assessment Date Thrive assessed 04/25/24 04/25/24 13:54 Currently or been in a relationship where the following occur: No concerns reported Const General: cooperative, healthy appearing and no acute distress Orientation/consciousness: oriented to person, oriented to place and oriented to time HENMT Head: Yes normal to inspection, Yes normocephalic and Yes atraumatic Mouth: Normal oral and palatal mucosa present and tongue normal Throat: Yes posterior oropharynx normal and Yes uvula midline Eyes General: appearance normal, both eyes and all related structures Neck Neck: Yes normal visual inspection, Yes full ROM and Yes no lymphadenopathy Thyroid: Thyroid normal Carotids: normal carotid upstroke Chest Chest palpation & inspection: normal inspection of the chest Resp Effort & Inspection: normal respiratory effort and able to speak in complete sentences Auscultation: clear to auscultation bilaterally Cardio Jugular venous distension: no JVD Palpation: normal PMI Rate: regular rate Rhythm: regular rhythm Heart sounds: S1 normal heart sound present and S2 normal heart sound present GI Inspection: Yes normal to inspection Palpation (GI): Soft to palpation and No hepatosplenomegaly present Auscultation: normal bowel sounds General: Yes no CVA tenderness Back/Spine/Pelvis Back: no CVA tenderness Skin General skin exam: no rashes or lesions noted Neuro General: oriented to person, oriented to place and oriented to time Extrem General: Yes normal to inspection and Yes full ROM Coding Level of Care Code Est Pt Prev Care 40-64y(94844) Diagnoses Physical exam Z00.00 Additional Codes MITRA-7 Assessment Billing - MITRA-7 Assessment Tool: MITRA-7 Assessment 44607 ([id number]) PHQ-9 - 41057 - PHQ-9 Billing: Yes ([id number]) Assessment & Plan Assessment & Plan (1) Physical exam: Code(s): Z00.00 - Encounter for general adult medical examination without abnormal findings Category: Medical Plan: do labs; healthy Orders: Orders Lipid Panel 04/25/24 Z13.220 - Encounter for screening for lipoid disorders Complete Blood Count Auto Diff 04/25/24 Z13.0 - Encounter for screening for diseases of the blood and blood-forming organs and certain disorders involving the immune mechanism Prostate Specific Antigen Scr 04/25/24 Z00.00 - Encounter for general adult medical examination without abnormal findings Thyroid Stimulating Hormone 04/25/24 Z13.29 - Encounter for screening for other suspected endocrine disorder Comprehensive Godwin. Panel Fast 04/25/24 Z13.9 - Encounter for screening, unspecified
== END 2024-04-25 14:04 | disposition home or self-care (01) ==
PROVIDERS: PCP Internal Medicine; Visit Provider Internal Medicine
DX: Z00.00 Encounter for general adult medical examination without abnormal findings (principal)

== ENCOUNTER → 2024-04-25 13:48 | Outpatient (BNVA) | payer BC, SELFPAY | PROVIDERS: PCP Internal Medicine; Visit Provider Internal Medicine | DX: Z00.00 Encounter for general adult medical examination without abnormal findings (principal) | CPT/HCPCS: 96127 ==

== ENCOUNTER 2024-04-29 07:03 | Outpatient (REF) | payer BC, SELFPAY ==
[2024-04-29 07:18] LABS: MANUAL DIFF FLAG NO
[2024-04-29 07:48] LABS: Basophils Absolute Auto 0.1 X10*3/uL (0.0-0.2); Basophils Percent Auto 0.9 % (0-2); Eosinophils Absolute Auto 0.3 X10*3/uL (0.0-0.4); Eosinophils Percent Auto 3.7 % (0-4); Hematocrit 48.8 % (42.0-52.0); Hemoglobin 16.6 g/dl (14.0-18.0); Imm Gran Abs Auto 0.03 X10*3/uL (0.00-0.03); Imm Gran Pct Auto 0.4 % (0.0-0.4); Lymphocytes Absolute Auto 2.3 X10*3/uL (1.2-4.9); Lymphocytes Percent Auto 30.5 % (20-40); Mean Corpuscular Hemoglobin 29.7 pg (27.0-33.0); Mean Corpuscular Volume 87.3 fL (80.0-98.0); Mean Platelet Volume 9.4 fL (9.4-12.4); Monocytes Absolute Auto 0.6 X10*3/uL (0.1-1.2); Monocytes Percent Auto 7.9 % (2-11); Neutrophils Absolute Auto 4.3 x10*3/uL (2.0-8.3); Neutrophils Percent Auto 56.6 % (45-73); Platelet Count 246 X10*3/uL (160-400); Red Blood Count 5.59 X10*6/uL (4.60-5.80); Red Cell Distribution Width 12.9 % (11.0-16.0); White Blood Count 7.6 X10*3/uL (4.8-10.8)
[2024-04-29 08:30] LABS: Alanine Aminotransferase 57 U/L (0-40); Albumin Level 4.2 g/dL (3.5-5.0); Alkaline Phosphatase 83 U/L (39-117); Anion Gap 11 (12-20); Aspartate Amino Transferase 30 U/L (5-37); Bilirubin Total 0.7 mg/dL (0.0-1.0); Blood Urea Nitrogen 19 mg/dL (9-16); Calcium 9.1 mg/dL (8.4-10.2); Carbon Dioxide 27 mmol/L (22-29); Chloride 105 mmol/L (96-108); Cholesterol 190 mg/dL (<200); Estimated Glomerular Filt Rate > 60; Glucose Fasting 95 mg/dL (60-99); HDL Cholesterol 37 mg/dL (>40); LDL Cholesterol Calculated 135 mg/dL (<100); Potassium 4.3 mmol/L (3.3-5.1); Sodium 139 mmol/L (135-145); Total Protein 7.5 g/dL (6.5-8.0); Triglycerides 92 mg/dL (<150)
[2024-04-29 08:35] LABS: Prostate Specific Antigen Scr 1.33 ng/mL (<0.05-4.0)
== END 2024-04-29 07:04 | disposition home or self-care (01) ==
LOC: HO.LAB 07:03
PROVIDERS: PCP Internal Medicine; Visit Provider Internal Medicine
DX: Z13.0 Encounter for screening for diseases of the blood and blood-forming organs and certain disorders involving the immune mechanism (principal); Z13.29 Encounter for screening for other suspected endocrine disorder; Z13.220 Encounter for screening for lipoid disorders; Z00.00 Encounter for general adult medical examination without abnormal findings; Z13.9 Encounter for screening, unspecified; Z12.5 Encounter for screening for malignant neoplasm of prostate
CPT/HCPCS: 36415; 80053; 80061; 84153; 84443; 85025

== ENCOUNTER 2024-06-06 08:52 | Day surgery (SDC) | payer BC, SELFPAY ==
[2024-06-02 14:29] VITALS: BMI 31.6
[2024-06-06 09:10] VITALS: BP 143/87; PULSE 65; RESP 18; TEMP 36.9; O2SAT 97
--- NOTE | 2024-06-06 09:24 | HO.ANESPROP2 ---
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 Father No problems noted. Surgical History Surgical History (Updated 06/02/24 @ 14:27 by Lavonne Garcia RN) History of open reduction and internal fixation (ORIF) procedure H/O colonoscopy History of vasectomy History of Problems with Anesthesia: No Social History Social History Housing: Condominium Alcohol intake: never Patient Tobacco Use Status: Never used Tobacco e-Cigarette/Vaping Use: Never Used Second Hand Smoke Exposure: No Have you been hit, kicked, punched, or otherwise hurt by someone within the past year? 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 Cognitive needs: No Hearing needs: No Vision needs: Yes (glasses) Meds Allergies Allergy/AdvReac Type Severity Reaction Status Date / Time No Known Allergies Allergy Verified 04/25/24 13:52 Active Medications: Current Medications Sodium Biphosphate/Sodium Phosphate (Sodium Phosphate,[place]-Dibasic 133 Ml Enema) 133 ml [place] ONCE PRN PRN Reason: Poor Colonoscopy Prep Results Home Medications ?Medication ?Instructions ?Recorded ?Confirmed ?Last Taken ?Type No Known Home Meds 01/08/22 06/02/24 Unknown History Exam Height,Weight and Vital Signs: Height 5 ft 2 in Weight 78.471 kg Last Vital Signs Temp 98.5 F 06/06/24 09:10 Pulse 65 06/06/24 09:10 Resp 18 06/06/24 09:10 BP 143/87 H 06/06/24 09:10 Pulse Ox 97 06/06/24 09:10 O2 Del Method Room Air 06/06/24 09:10 Airway Mallampati Class: II TM Dist: >3cm Neck ROM: Full Loose/Missing/Broken Teeth: No Heart: RRR Lungs: CTA Assessment and Plan Assessment Anesthesia Assessment: Anesthesia Plan Discussed and Chart Reviewed Final Anesthetic Review History of Problems with Anesthesia: No NPO: Yes ASA Class: II Final Preanesthetic Review: Meds/Allgs Chart Reviewed, Consent Obtained/Reviewed and Anes Risks/Benef Reviewed Patient Risk: Low Procedure Risk: Low Anesthetic Plan Anesthetic Plan: MAC: Disposition: Standard PACU
[2024-06-06] MEDS: Lactated Ringers 1,000 ML 50 ML IVCONT (09:30)
[2024-06-06 11:05] VITALS: BP 82/47; PULSE 54; RESP 18; TEMP 36.1; O2SAT 98
--- NOTE | 2024-06-06 11:09 | P.BOP_ITS ---
Brief Operative Note Date of Service: 06/06/24 Pre-op diagnosis: Screening Post-op diagnosis: other (Mild diverticulosis) Procedure: Colonoscopy to the cecum and TI Surgeon: Bean Hernandez MD Anesthesia: MAC Was an Textile Designer used for this Procedure?: No Estimated blood loss (mL): 0 Pathology: none sent Condition: stable Disposition: PACU
--- NOTE | 2024-06-06 11:30 | OP_ITS ---
DATE OF SERVICE: 06/06/2024 SURGEON: Bean Hernandez MD INDICATIONS: The patient presents for evaluation of colorectal cancer screening. Full consent was obtained from him for this, including risks of bleeding and perforation. PREOPERATIVE DIAGNOSIS: Colorectal cancer screening. POSTOPERATIVE DIAGNOSIS: PROCEDURE PERFORMED: Colonoscopy to cecum and terminal ileum. ESTIMATED BLOOD LOSS: COMPLICATIONS: ANESTHESIA: Medication used, monitored anesthesia care. ASSISTANTS: SPECIMENS: POSTOPERATIVE DIAGNOSES: Colorectal cancer screening, mild diverticulosis, small internal hemorrhoids. DESCRIPTION OF PROCEDURE: The patient was placed in the left lateral decubitus position. The digital rectal exam revealed no abnormalities. The Olympus video pediatric colonoscope was entered into the rectum and advanced easily to the cecum. Once in the cecum, I did identify a normal-appearing cecal pouch with appendiceal orifice and a normal-appearing ileocecal valve. The terminal ileum was cannulated and appeared normal. Scope was withdrawn back in the colon. The entire cecum and ileocecal valve appeared normal. The scope was slowly withdrawn assessing all mucosal surfaces carefully. Preparation was excellent. I did not visualize any sign of polyps, colitis, nor angiodysplasia. There was a mild amount of sigmoid diverticulosis. In the rectum, scope was retroflexed visualizing internal hemorrhoids, but no other pathology. The rectal mucosa appeared normal. The scope was straightened and withdrawn from the patient. He tolerated the procedure well and was returned to the recovery area in stable condition. IMPRESSION: 1. Mild diverticulosis. 2. Small internal hemorrhoids. PLAN: Given the negative exam and negative family history, I would recommend a followup coloscopy in 10 years for further screening. He will otherwise see me on a p.r.n. basis. MD LATOYA Grier/JANELLE / [phone]
[2024-06-06 11:39] VITALS: BP 126/84; PULSE 64; RESP 17; TEMP 36.1; O2SAT 98
== END 2024-06-06 11:58 | disposition home or self-care (01) ==
PROVIDERS: PCP Internal Medicine; Visit Provider Internal Medicine
PROC: 0DJD8ZZ Inspection of Lower Intestinal Tract, Via Natural or Artificial Opening Endoscopic (ICD-10-PCS; CPT 45378; principal; 2024-06-06 11:10)
DX: Z12.11 Encounter for screening for malignant neoplasm of colon (principal); K57.30 Diverticulosis of large intestine without perforation or abscess without bleeding; K64.8 Other hemorrhoids; Z98.890 Other specified postprocedural states
CPT/HCPCS: 45378

== ENCOUNTER 2024-11-23 11:11 | Outpatient (AMB) | payer BC, SELFPAY ==
--- NOTE | 2024-11-23 11:13 | A.OFFPC_ITS ---
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 Guillen, who retired 4 months ago with a routine check-up and review of laboratory results. He reports a history of hypercholesterolemia, which is attributed to dietary habits including high intake of fried foods and red meat. The patient acknowledges the need for dietary changes to manage cholesterol levels. The patient has slightly elevated liver enzymes, which may be influenced by medication or alcohol intake, although he denies significant alcohol consumption. He reports no associated abdominal pain or gastrointestinal symptoms. The patient experiences heartburn, particularly after consuming certain foods, and is advised to avoid eating close to bedtime to mitigate symptoms. He denies any significant gastrointestinal distress or changes in bowel habits. The patient has a history of slightly elevated blood pressure, with recent readings of 140/76 mmHg and 132/80 mmHg. He is advised to monitor his salt intake to manage blood pressure levels. The patient reports nocturia, waking up once or twice per night to urinate, which may be related to fluid intake before bedtime. He is advised to reduce fluid intake in the evening to improve sleep quality. A recent colonoscopy was performed, with results indicating no significant findings. [facility] Medical History No pertinent past medical history Surgical History History of open reduction and internal fixation (ORIF) procedure H/O colonoscopy History of vasectomy Family History Mother No problems noted. Father No problems noted. 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 1. Little interest or pleasure in doing things: not at all 2. Feeling down, depressed, or hopeless: not at all 3. Trouble falling or staying asleep, or sleeping too much: not at all 4. Feeling tired or having little energy: not at all 5. Poor appetite or overeating: not at all 6. Feeling bad about yourself - or that you are a failure or have let yourself or your family down: not at all 7. Trouble concentrating on things, such as reading the newspaper or watching television: not at all 8. Moving or speaking so slowly that other people could have noticed. Or the opposite - being so fidgety or restless that you have been moving around a lot more than usual: not at all 9. Thoughts that you would be better off or of hurting yourself in some way: not at all Total score: 0 Depression Screening Interpretation: Negative Depression Screening Done: Yes 22448 - PHQ-9 Billing: Yes Source: Developed by Drs. Bean Vilchis, Deanna Webb, Jesus Murillo and colleagues, with an educational jared from [employer]. Thrive Questionnaire Date Thrive assessed: 11/23/24 I am a: Patient What is your living situation today?: I have a steady place to live Within the past 12 months, did the food you bought not last and you didn't have the money to get more?: Often true Within the past 12 months, did you worry whether your food would run out before you got money to buy more?: I choose not to answer this question Do you have trouble paying for medicines?: No Do you have trouble getting transportation to medical appointments?: No Do you have trouble paying your heating and electricity bill?: No Do you have trouble taking care of your child, family member or friend?: No Do you have trouble with day-to-day activities such as bathing, preparing meals, shopping, managing finances, etc.?: No Are you currently unemployed and looking for a job?: No Are you interested in more education?: No Please select the resources that you would like help with: None Currently or been in a relationship where the following occur: Controlled Emotionally THRIVE Score: 2 AUDIT C Alcohol Use Questionnaire (AUDIT-C) 1. How often do you have a drink containing alcohol?: Monthly or less 2. How many drinks containing alcohol do you have on a typical day when you are drinking?: 1 or 2 3. How often do you have six or more drinks on one occasion?: Never Total Score: 1 MITRA-7 AMB Questionnaire MITRA-7 Date MITRA - 7 assessed: 11/23/24 Feeling nervous, anxious, or on edge: 3 = Nearly every day Not being able to stop or control worryin = More than half the days Worrying too much about different things: 3 = Nearly every day Trouble relaxin = Several days Being so restless that it is hard to sit still: 0 = Not at all Becoming easily annoyed or irritable: 0 = Not at all Feeling afraid as if something awful might happen: 3 = Nearly every day Total MITRA-7 score (0-4 normal; 5-9 mild; 10-14 moderate; 15-21 severe): 12 Source: Developed by Drs. Bean Vilchis, Deanna Webb, Jesus Murillo and colleagues, with an educational jared from [employer]. MITRA-7 Assessment Billing MITRA-7 Assessment Tool: MITRA-7 Assessment 00044 Review of Systems Const Denies headache(s) Eyes Denies loss of vision ENT Denies vertigo, Denies dizziness, Denies headache(s) and Denies sore throat Card Denies chest pain, Denies leg edema and Denies lightheadedness Resp Denies cough, Denies hemoptysis and Denies wheezing GI Denies abdominal pain, Denies melena, Denies constipation, Reports heartburn (Depending on what he eats), Denies diarrhea and Denies vomiting Denies dysuria, Reports nocturia (2 times a night) and Denies urinary urgency Musc Denies arthralgias, Denies joint swelling, Denies numbness and Denies tingling Neuro Denies Abnormal speech present, Denies behavioral changes, Denies vertigo, Denies dizziness, Denies headache(s), Denies loss of vision, Denies memory loss, Denies numbness and Denies tingling Psych Denies anxiety, Denies behavioral changes, Denies depression, Denies memory loss and Denies panic attacks Gabe/Lymph Denies easy bleeding and Denies easy bruising Aller/Immun Denies wheezing Physical exam (Primary Care) Vital Signs: Last Vital Signs Temp 96.7 F L 11/23/24 11:14 Pulse 76 11/23/24 11:14 BP 132/80 11/23/24 11:40 Pulse Ox 96 11/23/24 11:14 Oxygen Delivery Method Room Air 11/23/24 11:14 BMI result Body Mass Index 31.3 Tobacco/Smoking Status: Tobacco use Status Tobacco use date assessed 11/23/24 11/23/24 11:20 Patient Tobacco Use Status Never used Tobacco 11/23/24 11:20 e-Cigarette/Vaping Use Never Used 11/23/24 11:20 PHQ-9: PHQ-9 Score PHQ-9: Total score 0 12/18/24 16:30 Depression Screening Interpretation: Negative Thrive Assessment: Date of Thrive Assessment Date Thrive assessed 11/23/24 11/23/24 11:20 Currently or been in a relationship where the following occur: Controlled Emotionally Const General: healthy appearing, no acute distress, alert and awake Nutritional Appearance: well nourished Orientation/consciousness: oriented to person, oriented to place and oriented to time HENMT Ears: TM's normal bilaterally General nose exam: Normal nasal mucous membranes and turbinates present Eyes Conjunctivae: conjunctivae normal Sclerae: sclerae normal Pupils: Equal, round and reactive pupils present Neck Neck: Yes no lymphadenopathy and Yes no JVD Thyroid: Thyroid normal Carotids: no bruits Resp Effort & Inspection: normal respiratory effort and not tachypneic Auscultation: no crackles, no rales, no rhonchi and no wheezes Cardio Rate: regular rate Rhythm: regular rhythm Heart sounds: no murmurs and normal S1 and S2 GI Palpation (GI): Soft to palpation, nontender, no hepatomegaly and no splenomegaly Auscultation: normal bowel sounds Skin General skin exam: no rashes or lesions noted and dry skin Neuro General: oriented to person, oriented to place and oriented to time Cranial nerves: Yes Equal, round and reactive pupils present Speech: No Abnormal speech present Gait exam (Neuro): Normal gait present Motor exam (neuro): no tremor noted Extrem Right upper extremity: full ROM Left upper extremity: full ROM Right lower extremity: full ROM; no edema Left lower extremity: full ROM; no edema Psych Mental Status: mental status grossly normal Speech and movement: Normal speech and movement present Affect: normal affect Attitude: cooperative Thought process: Normal thought process present Coding Level of Care Code Est Pt Level 4 (24733) Diagnoses Hypertension, unspecified type I10 Hypertension type: unspecified Hyperlipidemia, unspecified hyperlipidemia type E78.5 Hyperlipidemia type: unspecified Elevated ALT measurement R74.01 Heartburn R12 Additional Codes MITRA-7 Assessment Billing - MITRA-7 Assessment Tool: MITRA-7 Assessment 35893 ([id number]) PHQ-9 - 51141 - PHQ-9 Billing: Yes ([id number]) Time Spent (min) 41 Assessment & Plan Assessment & Plan (1) HTN (hypertension): Code(s): I10 - Essential (primary) hypertension Category: Medical Qualifiers: Hypertension type: unspecified Qualified Code(s): I10 - Essential (primary) hypertension Plan: Encouraged DASH diet and activity as tolerated-goal systolic is less than 140 mmhg Refrain from alcohol use and if you smoke, smoking cessation is strongly advised (2) HLD (hyperlipidemia): Code(s): E78.5 - Hyperlipidemia, unspecified Category: Medical Qualifiers: Hyperlipidemia type: unspecified Qualified Code(s): E78.5 - Hyperlipidemia, unspecified Plan: Triglycerides 92, total cholesterol 190, LDL 135, HDL 37 on 04/29/2024 Discussed lifestyle modifications and activity as tolerated Encouraged fish oil supplement We will recheck lipid panel in 4 months (3) Elevated ALT measurement: Code(s): R74.01 - Elevation of levels of liver transaminase levels Category: Medical Plan: ALT 57 on 04/29/2024-avoid alcohol or drugs containing Tylenol and fatty foods We will recheck CMP in 4 months (4) Heartburn: Code(s): R12 - Heartburn Category: Medical Plan: Do not eat meals or drink carbonated beverages within 3 hr of bedtime Decrease the amount of fried, fatty, and spicy foods to decrease gastric acid production Raise the head of the bed using 4 to 6-inch blocks, especially if nocturnal symptoms are present Lose weight if indicated; avoid tight-fitting clothing, especially around the waist Avoid foods that relax the Lower esophageal sphincter (chocolate, peppermint, high-fat foods etc.,) Plan The patient will be advised to make dietary changes to manage h ypercholesterolemia, focusing on reducing the intake of fried foods and red meat. Liver enzyme levels will be monitored, and the patient is advised to avoid excessive alcohol consumption and review any medications that may contribute to liver enzyme elevation. For heartburn, the patient is advised to avoid eating close to bedtime and to identify and limit foods that trigger symptoms. Blood pressure will be monitored, and the patient is advised to reduce salt intake to manage slightly elevated blood pressure levels. The patient is advised to reduce fluid intake in the evening to address nocturia and improve sleep quality. A follow-up appointment is recommended in four months, with lab tests to be completed prior to the visit to assess the effectiveness of the interventions. Patient was informed and verbally consented to the use of an ambient scribe for clinic note documentation during this visit. Orders: Orders Complete Blood Count Auto Diff 4 Months Z00.00 - Encounter for general adult medical examination without abnormal findings, E78.5 - Hyperlipidemia, unspecified, R74.01 - Elevation of levels of liver transaminase levels TSH reflex Free T4 4 Months Z00.00 - Encounter for general adult medical examination without abnormal findings, E78.5 - Hyperlipidemia, unspecified Comprehensive Calvin. Panel Fast 4 Months Z00.00 - Encounter for general adult medical examination without abnormal findings, E78.5 - Hyperlipidemia, unspecified UA CC w/rflx Micro + Cult 4 Months Z00.00 - Encounter for general adult medical examination without abnormal findings, E78.5 - Hyperlipidemia, unspecified Vitamin D 25-OH Total 4 Months Z00.00 - Encounter for general adult medical examination without abnormal findings, E78.5 - Hyperlipidemia, unspecified PSA,Total (Free>4and<10) 4 Months Z00.00 - Encounter for general adult medical examination without abnormal findings, E78.5 - Hyperlipidemia, unspecified Lipid Panel 4 Months Z00.00 - Encounter for general adult medical examination without abnormal findings, E78.5 - Hyperlipidemia, unspecified
[2024-11-23 11:14] VITALS: BP 140/76; PULSE 76; TEMP 35.9; O2SAT 96; BMI 31.3
[2024-11-23 11:40] VITALS: BP 132/80
--- OUTSIDE RECORDS SUMMARY | 2024-11-23 12:15 | XMS_ITS | Patient Health Record ---
Author Organization [facility] Address [address] [place] [id number] Care Team Providers Care Urban Planner Name Role Phone Douglas Lucia MD Primary Care Provider Bean Cota Unavailable [phone] Allergies No Known Allergies Reason For Referral No Information Social History Tobacco Use: Social History Observation Description Date Details (start date - stop date) Former Smoker NA - NA Tobacco Use/Smoking Question Answer Notes Patient is a former smoker How long has it been since you last smoked? > 10 years Alcohol Screen Question Answer Notes Did you have a drink contain ing alcohol in the past year? Yes How often did you have a dri nk containing alcohol in the past year? Never (0 point) How many drinks did you have on a typical day when you were drinking in the past year? 1 or 2 drinks (0 point) How often did you have 6 or more drinks on one occasion in the past year? Never (0 point) Points 0 Interpretation Negative Section Notes: Nonsmoker; no sig alcohol Problems Problem Type SNOMED Code ICD Code Onset Dates Problem Status W/U Status Risk Notes Problem Colon cancer screening (Z12.11) Active confirmed Problem Pre-procedure evaluation check (264045030) Encounter for other preprocedural examination (Z01.818) Active confirmed Problem Diverticular disease of colon (778788260) Diverticulosis of large intestine without perforation or abscess without bleeding (K57.30) Active confirmed Vital Signs Blood pressure diastolic 00 mm Hg 02/25/2024 Height 5 ft 2 in in 02/25/2024 Blood pressure systolic 00 mm Hg 02/25/2024 Weight 173 lbs 02/25/2024 BMI 31.64 kg/m2 02/25/2024 Encounters Encounter Location Date Provider Diagnosis [facility] [facility] [address] [place] [id number] 06/06/2024 Bean Hernandez Colon cancer screeni ng Z12.11 ; Diverticulosis of large intestine without perforation or abscess without bleeding K57.30 and Other hemorrhoids K64.8 [facility] [address] [place] [address] 02/25/2024 Bean Hernandez Colon cancer screeni ng Z12.11 and Encounter for other preprocedural examination Z01.818 [facility] [address] [place] [address] 02/24/2024 Bean Hernandez Assessments Encounter Date Diagnosis (ICD Code) Assessment Notes Treatment Notes Treatment Clinical Notes Section Notes 06/06/2024 Colon cancer screening (ICD-10 - Z12.11) 06/06/2024 Diverticulosis of large intestine without perforation or abscess without bleeding (ICD-10 - K57.30) 02/25/2024 Colon cancer screening (ICD-10 - Z12.11) Overall, Desire appears well. Given his age, good clinical appearance, and last colonoscopy being over 10 years ago, I did recommend a followup colonoscopy for further screening purposes. We did review the rationale for that regard to colon cancer prevention. Full consent is obtained for this, including risks of bleeding and perforation. The procedure will be done monitored anesthesia care. Desire was comfortable with this plan. Thank you again for allowing me to participate in Desire's care. I shall continue to keep you advised of his progress. 02/25/2024 Encounter for other preprocedural examination (ICD-10 - Z01.818) Overall, Desire appears well. Given his age, good clinical appearance, and last colonoscopy being over 10 years ago, I did recommend a followup colonoscopy for further screening purposes. We did review the rationale for that regard to colon cancer prevention. Full consent is obtained for this, including risks of bleeding and perforation. The procedure will be done monitored anesthesia care. Desire was comfortable with this plan. Thank you again for allowing me to participate in Desire's care. I shall continue to keep you advised of his progress. 06/06/2024 Other hemorrhoids (ICD-10 - K64.8) Plan Of Treatment Future Test Test Name Order Date COLONOSCOPY 02/25/2024 Insurance Providers Payer Name Payer Address Payer Phone Subscriber Number Group Number Insured Name Patient Relationship to Insured Coverage Start Date Coverage End Date [facility] [address] [place] [address] [id number] DESIRE DAY Self - patient is the insured Medical (General) History Medical History History ICD Code Denies [place],CVA,Lung disease,renal dise ase Reports a negative colonoscopy at about age 51 Surgical History Surgery Date(Month/Year) Left wrist from fall
--- OUTSIDE RECORDS SUMMARY | 2024-11-23 12:15 | XMS_ITS | Clinical Summary ---
Author Organization [facility] Address [address] [facility] [address] [address] Care Team Providers Care Refuse And Recycling Worker Name Role Phone No Pcp, Per Patient Primary Care Provider Unavai lable Allergies No known active allergies Medications No known medications Social History Tobacco Use Types Packs/Day Years Used Date Smoking Tobacco: Former Smokeless Tobacco: Never Alcohol Use Standard Drinks/Week Comments Not Currently 0 (1 standard drink = 0.6 oz pur e alcohol) Sex and Gender Information Value Date Recorded Sex Assigned at Not on file Legal Sex Male 1:30 PM EDT Gender Identity Not on file Sexual Orientation Not on file Last Filed Vital Signs Vital Sign Reading Time Taken Comments Blood Pressure 174/100 12/29/2021 3:53 PM EDT Pulse 71 12/29/2021 3:53 PM EDT Temperature 36.9 C (98.4 F) 12/29/2021 3:53 PM EDT Respiratory Rate 16 12/29/2021 3:53 PM EDT Oxygen Saturation 99% 12/29/2021 3:53 PM EDT Inhaled Oxygen Concentration - - Weight 77.1 kg (170 lb) 12/29/2021 1:32 PM EDT Height 162.6 cm (5' 4 ) 12/29/2021 1:32 PM EDT Body Mass Index 29.18 12/29/2021 1:32 PM EDT Plan of Treatment Health Maintenance Due Date Last Done Comments CT Colonography 1961 Colonoscopy 1961 Colorectal Cancer Screening 1961 FIT-DNA 1961 FIT 1961 FOBT 1961 HIV Screening 1961 Lipid Panel 1961 Sigmoidoscopy 1961 MMR Vaccines (1 of 1 - Stand max series) 1962 Diabetes Screening 1979 Hepatitis C Screening 1979 DTaP/Tdap/Td Vaccines (1 - Tdap) 1980 Pneumococcal Vaccine: 50+ Ye ars (1 of 1 - PCV) 2011 Zoster Vaccines (1 of 2) 2011 COVID-19 Vaccine (1 - 2023-2 5 season) 2024 Depression Screening 05/04/2024 Influenza Vaccine (#1) 2025 HIB Vaccines Aged Out No longer eligi ble based on patient's age to complete this topic HPV Vaccines Aged Out No longer eligi ble based on patient's age to complete this topic Hepatitis A Vaccines Aged Out No long er eligible based on patient's age to complete this topic Hepatitis B Vaccines Aged Out No long er eligible based on patient's age to complete this topic IPV Vaccines Aged Out No longer eligi ble based on patient's age to complete this topic Meningococcal B Vaccine Aged Out No l onger eligible based on patient's age to complete this topic Meningococcal Vaccine Aged Out No lea amanda eligible based on patient's age to complete this topic Rotavirus Vaccines Aged Out No longer eligible based on patient's age to complete this topic [place] [address] [place] [address] PPO Care Teams Refuse And Recycling Worker Relationship Specialty Start Date End Date No Pcp, Per Patient [place] PCP - General 12/29/21
--- OUTSIDE RECORDS SUMMARY | 2024-11-23 12:15 | XMS_ITS | Clinical Summary ---
Author Organization [facility] Address [address] [place] [phone] Phone Care Team Providers Care Fly Maker Name Role Phone Unknown, Unknown MD Primary Care Provider Unavai lable Allergies No known active allergies Medications ondansetron (ZOFRAN) 4 MG tablet Take 1 tablet (4 mg total) by mouth every 8 (eight) hours as needed. 15 tablet 11/30/2018 Active Social History Tobacco Use Types Packs/Day Years Used Date Smoking Tobacco: Never Assessed Education Answer Date Recorded Are you interested in more education? Not on sheridan e 08/29/2022 Are you concerned about learning? Not on file 08/29/2022 No 08/29/2022 No 08/29/2022 Digital Access Answer Date Recorded No 09/29/2022 No 09/29/2022 No 09/29/2022 Reliable internet access at home? Not on file 09/29/2022 Device with a working camera? Not on file Sex and Gender Information Value Date Recorded Sex Assigned at Male 11/30/2018 6:40 PM EDT Legal Sex Male 10:34 PM EDT Gender Identity Male 11/30/2018 6:40 PM EDT Sexual Orientation Not on file Last Filed Vital Signs Vital Sign Reading Time Taken Comments Blood Pressure 137/100 11/30/2018 9:15 PM EDT Pulse 88 11/30/2018 6:40 PM EDT Temperature 36 C (96.8 F) 11/30/2018 6:40 PM EDT Respiratory Rate 20 11/30/2018 6:40 PM EDT Oxygen Saturation 98% 11/30/2018 9:15 PM EDT Inhaled Oxygen Concentration - - Weight 66.7 kg (147 lb) 11/30/2018 6:39 PM EDT Height 162.6 cm (5' 4 ) 11/30/2018 6:39 PM EDT Body Mass Index 25.23 11/30/2018 6:39 PM EDT Plan of Treatment Not on file Medical Devices Not on file [place] [address] [place] [address] [address] [place] [address] [address] [address] [place] [address] [place] [address] [address] [place] [address] [address] [place] [address] PPO EPO Member Subscriber Plan / Payer (Ef fective 2018-Present) Name:Ron Collazo Relation to Subscriber:Self Name:Ron Collazo Payer ID:[id number] (NAIC) Type:PPO Address: [address] Member Subscriber Plan / Payer (Ef fective 2018-Present) Name:Ron Collazo Relation to Subscriber:Self Name:Ron Collazo Payer ID:[id number] (NAIC) Type:PPO Address: [address] [place], [place] PPO EPO PPO EPO Care Teams Fly Maker Relationship Specialty Start Date End Date Unknown, Unknown, PCP - General 11/30/18 Additional Source Comments The information contained in this document represents components of the legal health record. It is not the complete legal health record.[facility]
== END 2024-11-23 12:50 | disposition home or self-care (01) ==
LOC: HO.HMCH 11:12
DX: I10 Essential (primary) hypertension (principal); E78.5 Hyperlipidemia, unspecified; R74.01 Elevation of levels of liver transaminase levels; R12 Heartburn

== ENCOUNTER → 2024-11-23 11:11 | Outpatient (BNVA) | payer BC, SELFPAY | PROVIDERS: PCP Internal Medicine | DX: I10 Essential (primary) hypertension (principal); E78.00 Pure hypercholesterolemia, unspecified; R74.01 Elevation of levels of liver transaminase levels; R12 Heartburn | CPT/HCPCS: 96127 ==

== ENCOUNTER 2025-05-01 08:17 | Outpatient (AMB) | payer BC, SELFPAY ==
--- OUTSIDE RECORDS SUMMARY | 2024-02-25 04:20 | XMS_ITS ---
Author Organization [facility] Address [address] [place] [phone] Care Team Providers Care Instructional Design Manager Name Role Phone Rea SARABIA, Douglas Primary Care Provider Unavaila Bean Llamas Unavailable [phone] REASON FOR VISIT COLON SCREENING Encounters Encounter Location Date Provider Diagnosis [facility] [address] [place] [phone] 02/25/2024 Bean Hernandez Plan Of Treatment No Information Progress Notes * DESIRE DAYDOB:1960 (64 yo M)Acc No.[id number]:02/25/2024 Progress Notes Patient: DESIRE SALAMANCA Provider: Rafita Hernandez MD :1960 A ge:63 Y S ex:Male Date:02/25/2024 Address:[address] [place] [address] [id number] Pcp:Douglas Lucia MD Subjective: * Chief Complaints: * C OLON SCREENING * The named appointment provid er may or may not be the originator of this progress note, and it is not deemed complete until electronically signed by the appointment provider. Sign off status: Pending * Provider: Rafita Hernandez MD Date: Generated for Christina haque/Royer/Luciaitting on: 08:19 AM EST
--- OUTSIDE RECORDS SUMMARY | 2024-06-06 05:50 | XMS_ITS ---
Author Organization [facility] Address [address] [place] [id number] Care Team Providers Care Circuit Recorder Name Role Phone Douglas Lucia MD Primary Care Provider Unavaila Bean Llamas Unavailable [phone] REASON FOR VISIT screening Problems Problem Type SNOMED Code ICD Code Onset Dates Problem Status W/U Status Risk Notes Problem Diverticular disease of colon (995835864) Diverticulosis of large intestine without perforation or abscess without bleeding (K57.30) Active confirmed Encounters Encounter Location Date Provider Diagnosis [facility] [address] [place] [phone] 06/06/2024 Bean Hernandez Colon cancer scree aretha [...] Notes * DESIRE DAYDOB:1960 (64 yo M)Acc No.[id number]:06/06/2024 COLON WITH MAC Patient: DESIRE SALAMANCA Provider: Rafita Hernandez MD :1960 A ge:64 Y S ex:Male Date:06/06/2024 Address:[address] [place] [address] , [id number] Pcp:Douglas Lucia MD Subjective: * Chief Complaints: * S creening Assessment: * Assessment: 1. C olon cancer screening - Z12.11 (Primary) 2 . D iverticulosis of large intestine without perforation or abscess without bleeding - K57.30 3 . O ther hemorrhoids - K64.8 Plan: * Procedure Codes: 4 5378 DIAGNOSTIC COLONOSCOPY, Modifiers: 33 Billing Information: * Procedure Codes: 17623 DIAGNOSTIC COLONOSCOPY. Modifiers: 33 * The named appointment provid er may or may not be the originator of this progress note, and it is not deemed complete until electronically signed by the appointment provider. Sign off status: Pending * Provider: Rafita Hernandez MD Date: 0 06/06/2024 Generated for Christina haque/Royer/Luciaitting on: 08:19 AM EST
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
[2025-05-01 08:19] VITALS: BP 124/74; PULSE 65; RESP 18; TEMP 36.6; O2SAT 95; BMI 31.5
--- OUTSIDE RECORDS SUMMARY | 2025-05-01 08:19 | XMS_ITS | Clinical Summary ---
Author Organization [facility] Address [address] [address] Care Team Providers Care Metal Dealer Name Role Phone No Pcp, Per Patient [...] 12/29/2021 1:32 PM EDT Plan of Treatment Not on file Insurance [facility] PPO Care Teams Metal Dealer Relationship Specialty Start Date End Date No Pcp, Per Patient TAMARA PCP - General 12/29/21
--- OUTSIDE RECORDS SUMMARY | 2025-05-01 08:19 | XMS_ITS | Patient Health Record ---
Author Organization [facility] Address [address] [place] [id number] Care Team Providers Care Batch Or Continuous Still Operator Name Role Phone Douglas Lucia MD Primary Care Provider Bean oCta Unavailable [phone] Allergies No Known Allergies Reason For Referral No Information Social History Tobacco Use: Social History Observation Description Date Details (start date - stop date) Former Smoker NA - NA Social History Drugs/Alcohol: Social Info Question Answer Notes Alcohol Screen Did you have a drink containing alcohol in the past year? Yes How often did you have a drink containing alcohol in the past year? Never (0 point) How many drinks did you have on a typical day when you were drinking in the past year? 1 or 2 drinks (0 point) How often did you have 6 or more drinks on one occasion in the past year? Never (0 point) Points 0 Interpretation Negative Tobacco Use: Social Info Question Answer Notes Tobacco Use/Smoking Patient is a former smoker How long has it been since you last smoked? 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 Notes: Nonsmoker; no sig alcohol Problems Problem Type SNOMED Code ICD Code Onset Dates Problem Status W/U Status Risk Notes Problem Colon cancer screening (572235883) Colon cancer screening (Z12.11) Active confirmed Problem Pre-procedure evaluation check (742225471) Encounter for other preprocedural examination (Z01.818) Active confirmed Problem Diverticular disease of colon (210557624) Diverticulosis of large intestine without perforation or abscess without bleeding (K57.30) Active confirmed Encounters Encounter Location Date Provider Diagnosis [facility] [place] Outpatient [address] [place] [id number] 06/06/2024 Bean Hernandez Colon cancer scree aretha [...] Insured Coverage Start Date Coverage End Date [facility] [address] [place], [place] [id number] [phone] [id number] DESIRE DAY Self - patient is the insured Medical (General) History Medical History History ICD Code Denies [place],DM,CVA,Lung disease,renal dise ase Reports a negative colonoscopy at about age 51 Surgical History Surgery Date(Month/Year) Left wrist from fall
--- OUTSIDE RECORDS SUMMARY | 2025-05-01 08:19 | XMS_ITS | Clinical Summary ---
Author Organization [facility] Address [address] [place] [id number] Phone Care Team Providers Care Supervisor Asbestos Textile Name Role Phone Unknown, Unknown MD Primary [...] file Medical Devices Not on file [place] [address] [place] [address] [address] [place] [address] [address] [place] [address] [place] [address] [place] [address] [place] [address] [place] [address] [place] [address] PPO EPO Member Subscriber Plan / Payer (Ef fective 2018-Present) Name:Ron Collazo Relation to Subscriber:Self Name:Ron Collazo Payer ID:[id number] (NAIC) Type:PPO Address: [address] Member Subscriber Plan / Payer (Ef fective 2018-Present) Name:Ron Collazo Relation to Subscriber:Self Name:Ron Collazo Payer ID:[id number] (NAIC) Type:PPO Address: [address] [place], [place] PPO EPO PPO EPO Care Teams Supervisor Asbestos Textile Relationship Specialty Start Date End Date Unknown, Unknown, PCP - General 11/30/18 Additional Source Comments The information contained in this document represents components of the legal health record. It is not the complete legal health record.[facility]
== END 2025-05-01 08:59 | disposition home or self-care (01) ==
LOC: HO.HMCH 08:17
DX: Z00.00 Encounter for general adult medical examination without abnormal findings (principal); I10 Essential (primary) hypertension; E78.5 Hyperlipidemia, unspecified; R74.01 Elevation of levels of liver transaminase levels; R12 Heartburn; Z23 Encounter for immunization; R53.83 Other fatigue

== ENCOUNTER → 2025-05-01 08:17 | Outpatient (BNVA) | payer BC, SELFPAY | PROVIDERS: PCP Internal Medicine | DX: Z00.00 Encounter for general adult medical examination without abnormal findings (principal); Z23 Encounter for immunization; I10 Essential (primary) hypertension; E78.5 Hyperlipidemia, unspecified; R74.01 Elevation of levels of liver transaminase levels; R12 Heartburn; R53.83 Other fatigue | CPT/HCPCS: 90471; 90714 ==

== ENCOUNTER 2025-05-02 06:57 | Outpatient (REF) | payer BC, SELFPAY ==
--- OUTSIDE RECORDS SUMMARY | 2024-02-25 04:20 | XMS_ITS ---
Author Organization [facility] Address [address] [place] [id number] Care Team Providers Care Inspector Motor Vehicles Name Role Phone Rea SARABIA, Douglas Primary Care Provider Unavaila Bean Llamas Unavailable [phone] REASON FOR VISIT COLON SCREENING Encounters Encounter Location Date Provider Diagnosis [facility] [address] [place] [phone] 02/25/2024 Bean Hernandez Plan Of Treatment No Information Progress Notes * DESIRE DAYDOB:1960 (64 yo M)Acc No.[id number]:02/25/2024 Progress Notes Patient: DESIRE SALAMANCA Provider: Rafita Hernandez MD :1960 A ge:63 Y S ex:Male Date:02/25/2024 Address:[address] [place] [address] [id number] Pcp:Douglas Lucia MD Subjective: * Chief Complaints: * C OLON SCREENING * The named appointment provid er may or may not be the originator of this progress note, and it is not deemed complete until electronically signed by the appointment provider. Sign off status: Pending * Provider: Rafita Hernandez MD Date: Generated for Christina haque/Royer/Luciaitting on: 08:41 AM EST
--- OUTSIDE RECORDS SUMMARY | 2024-06-06 05:50 | XMS_ITS ---
Author Organization [facility] Address [address] [place] [id number] Care Team Providers Care Rehab Consultant Name Role Phone Douglas Lucia MD Primary Care Provider Unavaila Bean Llamas Unavailable [phone] REASON FOR VISIT screening Problems Problem Type SNOMED Code ICD Code Onset Dates Problem Status W/U Status Risk Notes Problem Diverticular disease of colon (439982524) Diverticulosis of large intestine without perforation or abscess without bleeding (K57.30) Active confirmed Encounters Encounter Location Date Provider Diagnosis [facility] [address] [place] [phone] 06/06/2024 Bean Hernandez Colon cancer scree aretha Z12.11 ; Diverticulosis of large intestine without perforation or abscess without bleeding K57.30 and Other hemorrhoids K64.8 Assessments Encounter Date Diagnosis (ICD Code) Assessment Notes Treatment Notes Treatment Clinical Notes Section Notes 06/06/2024 Colon cancer screening (ICD-10 - Z12.11) 06/06/2024 Diverticulosis of large intestine without perforation or abscess without bleeding (ICD-10 - K57.30) 06/06/2024 Other hemorrhoids (ICD-10 - K64.8) Plan Of Treatment No Information Progress Notes * DESIRE DAYDOB:1960 (64 yo M)Acc No.[id number]:06/06/2024 COLON WITH MAC Patient: DESIRE SALAMANCA Provider: Rafita Hernandez MD :1960 A ge:64 Y S ex:Male Date:06/06/2024 Address:[address] [place] [address] , [id number] Pcp:Douglas Lucia MD Subjective: * Chief Complaints: * S creening Assessment: * Assessment: 1. C olon cancer screening - Z12.11 (Primary) 2 . D iverticulosis of large intestine without perforation or abscess without bleeding - K57.30 3 . O ther hemorrhoids - K64.8 Plan: * Procedure Codes: 4 5378 DIAGNOSTIC COLONOSCOPY, Modifiers: 33 Billing Information: * Procedure Codes: 90973 DIAGNOSTIC COLONOSCOPY. Modifiers: 33 * The named appointment provid er may or may not be the originator of this progress note, and it is not deemed complete until electronically signed by the appointment provider. Sign off status: Pending * Provider: Rafita Hernandez MD Date: 0 06/06/2024 Generated for Christina haque/Royer/Luciaitting on: 08:41 AM EST
[2025-05-02 07:15] LABS: MANUAL DIFF FLAG NO
[2025-05-02 08:00] LABS: Hematocrit 49.2 % (42.0-52.0); Hemoglobin 16.8 g/dl (14.0-18.0); Imm Gran Abs Auto 0.02 X10*3/uL (0.00-0.03); Imm Gran Pct Auto 0.3 % (0.0-0.4); Lymphocytes Absolute Auto 2.0 X10*3/uL (1.2-4.9); Mean Corpuscular HGB Conc 34.1 g/dl (31.0-36.0); Mean Corpuscular Hemoglobin 29.3 pg (27.0-33.0); Mean Corpuscular Volume 85.9 fL (80.0-98.0); NRBC Abs Auto 0.000 X10*3/uL (0.0-0.012); NRBC Pct Auto 0.0 /100WBC (0.0-0.2); Platelet Count 197 X10*3/uL (160-400); Red Blood Count 5.73 X10*6/uL (4.60-5.80); White Blood Count 7.5 X10*3/uL (4.8-10.8)
--- OUTSIDE RECORDS SUMMARY | 2025-05-02 08:41 | XMS_ITS | Patient Health Record ---
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 Outpatient [address] [place] [id number] 06/06/2024 Bean Hernandez Colon cancer scree aretha [...] Insured Coverage Start Date Coverage End Date [facility] [address] [place], [place] [id number] DESIRE DAY Self - patient is the insured Medical (General) History Medical History History ICD Code Denies [place],DM,CVA,Lung disease,renal dise ase Reports a negative colonoscopy at about age 51 Surgical History Surgery Date(Month/Year) Left wrist from fall
--- OUTSIDE RECORDS SUMMARY | 2025-05-02 08:42 | XMS_ITS | Clinical Summary ---
Author Organization [facility] Address [address] [address] Care Team Providers Care Upper Extremity Surgeon Name Role Phone No Pcp, Per Patient [...] Plan of Treatment Not on file Insurance [facility] PPO Care Teams Upper Extremity Surgeon Relationship Specialty Start Date End Date No Pcp, Per Patient TAMARA PCP - General 12/29/21
--- OUTSIDE RECORDS SUMMARY | 2025-05-02 08:42 | XMS_ITS | Clinical Summary ---
Author Organization [facility] Address [address] [place] [phone] Phone Care Team Providers Care Neuropsychiatric Aide Name Role Phone Unknown, Unknown MD Primary [...] file Medical Devices Not on file [place] [address] [place] [address] [place] [address] [place] [place] [address] [place] [address] [place] [place] [address] [place] [address] PPO EPO Member Subscriber Plan / Payer (Ef fective 2018-Present) Name:Ron Collazo Relation to Subscriber:Self Name:Ron Collazo Payer ID:[id number] (NAIC) Type:PPO Address: [address] Member Subscriber Plan / Payer (Ef fective 2018-Present) Name:Ron Collazo Relation to Subscriber:Self Name:Ron Collazo Payer ID:[id number] (NAIC) Type:PPO Address: [address] [place], [place] PPO EPO PPO EPO Care Teams Neuropsychiatric Aide Relationship Specialty Start Date End Date Unknown, Unknown, PCP - General 11/30/18 Additional Source Comments The information contained in this document represents components of the legal health record. It is not the complete legal health record.[facility]
[2025-05-02 08:53] LABS: Appearance Urine Clear; Glucose Urine UA Negative (Negative); PH 5.5 (5.0-9.0); Specific Gravity - Urine 1.025 (1.005-1.025); UMIC TRIGGER UACC YES
[2025-05-02 08:59] LABS: UACC Culture Trigger YES
[2025-05-02 09:23] LABS: Alanine Aminotransferase 37 U/L (0-40); Albumin Level 4.3 g/dL (3.5-5.0); Alkaline Phosphatase 81 U/L (39-117); Anion Gap 12 (12-20); Aspartate Amino Transferase 28 U/L (5-37); Blood Urea Nitrogen 15 mg/dL (9-16); Calcium 8.8 mg/dL (8.4-10.2); Carbon Dioxide 22 mmol/L (22-29); Chloride 110 mmol/L (96-108); Cholesterol 187 mg/dL (<200); Estimated Glomerular Filt Rate > 60; HDL Cholesterol 34 mg/dL (>40); Potassium 3.9 mmol/L (3.3-5.1); Sodium 140 mmol/L (135-145); Total Protein 7.4 g/dL (6.5-8.0); Triglycerides 103 mg/dL (<150)
[2025-05-02 09:25] LABS: PSA,Total (Free>4and<10) 1.37 ng/mL (0.00-4.00)
== END 2025-05-02 06:58 | disposition home or self-care (01) ==
LOC: HO.LAB 06:57
DX: Z00.00 Encounter for general adult medical examination without abnormal findings (principal); E78.5 Hyperlipidemia, unspecified; R74.01 Elevation of levels of liver transaminase levels; Z12.5 Encounter for screening for malignant neoplasm of prostate; Z13.21 Encounter for screening for nutritional disorder
CPT/HCPCS: 36415; 80053; 80061; 81001; 82306; 84153; 84443; 85025; 87086